=== PATIENT | male | born 1955 | race Caucasian/White ===

== ENCOUNTER 2018-02-03 22:02 | Emergency (ER) | payer OTHER ==
[2018-02-03 22:12] VITALS: RESP 18
--- NOTE | 2018-02-03 23:02 | XR ---
EXAMINATION TYPE: XR chest 2V DATE OF EXAM: 02/03/2018 COMPARISON: 01/19/2016 HISTORY: Chest pain TECHNIQUE: Frontal and lateral views of the chest are obtained. FINDINGS: Heart and mediastinum are normal. Thoracic aorta is tortuous. Lungs are clear of infiltrat e. There is no heart failure. There are chest leads. Bony thorax is intact. There is no sign of pleur al effusion. IMPRESSION: No active cardiopulmonary disease. No change.
[2018-02-03] MEDS ORDERED: NITROGLYCERIN OINT 1 INCH/GM PACKET TOPICAL STA (23:11)
[2018-02-03] MEDS ORDERED: ASPIRIN 81 MG PO STA (23:11)
--- NOTE | 2018-02-03 23:16 | ED ---
General Adult HPI - General Chief complaint: Chest Pain Stated complaint: chest pain Time Seen by Provider: 02/03/18 22:21 Source: patient, RN notes reviewed Mode of arrival: wheelchair Limitations: no limitations - History of Present Illness Initial comments: Patient is a pleasant 62-year-old male presenting to the emergency Department with complaints of chest discomfort. Onset of symptoms was several days ago. Symptoms were somewhat worse today. Patient is having several episodes daily of tightness on the right sternal border. Episodes generally only last a few seconds then resolved. Discomfort is 2 or 3/10. Patient has no discomfort at this time. No associated dyspnea, nausea, or diaphoresis. Patient states symptoms are usually noticed when he is at rest. Patient does exercise and does play tennis without symptoms occurring. - Related Data Home Medications Medication Instructions Recorded Confirmed Valsartan [Diovan] 20 mg PO DAILY 05/29/15 02/03/18 Ibuprofen [Motrin Ib] 400 mg PO BID PRN 02/03/18 02/03/18 Rosuvastatin [Crestor] 10 mg PO DAILY 02/03/18 02/03/18 Allergies Allergy/AdvReac Type Severity Reaction Status Date / Time No Known Allergies Allergy Verified 02/03/18 22:30 Review of Systems ROS Statement: Those systems with pertinent positive or pertinent negative responses have been documented in the HPI. ROS Other: All systems not noted in ROS Statement are negative. Constitutional: Denies: fever Eyes: Denies: eye pain ENT: Denies: ear pain Respiratory: Denies: cough, dyspnea Cardiovascular: Reports: chest pain Endocrine: Denies: fatigue Gastrointestinal: Denies: abdominal pain Genitourinary: Denies: dysuria Musculoskeletal: Denies: back pain Skin: Reports: rash (Patient has a rash on his back they do question was from bug bites a proximal he 5 days ago. They do feel it is improving.) Neurological: Denies: headache Past Medical History Past Medical History: Hypertension Additional Past Medical History / Comment(s): kidney stones History of Any Multi-Drug Resistant Organisms: None Reported Past Surgical History: Hernia Repair Past Psychological History: No Psychological Hx Reported Smoking Status: Never smoker Past Alcohol Use History: None Reported Past Drug Use History: None Reported General Exam Limitations: no limitations General appearance: alert, in no apparent distress Head exam: Present: atraumatic Eye exam: Present: normal appearance Neck exam: Present: normal inspection Respiratory exam: Present: normal lung sounds bilaterally. Absent: chest wall tenderness Cardiovascular Exam: Present: regular rate, normal rhythm Expanded Peripheral pulses: 2+: Radial (R), Radial (L), Posterior Tibialis (R), Posterior Tibialis (L) GI/Abdominal exam: Present: soft. Absent: tenderness Extremities exam: Present: normal inspection. Absent: pedal edema, calf tenderness Back exam: Present: normal inspection Neurological exam: Present: alert Psychiatric exam: Present: normal affect, normal mood Skin exam: Present: rash (Right thoracic back with several raised confluent lesions with minimal discomfort. No vesicles.) Course Vital Signs 02/03/18 02/03/18 02/03/18 22:09 22:33 23:30 Temperature 97.7 F Pulse Rate 64 63 56 L Respiratory 18 18 18 Rate Blood Pressure 124/80 130/87 120/79 O2 Sat by Pulse 98 97 97 Oximetry EKG Findings - EKG Comments: EKG Findings:: Sinus bradycardia 58. First-degree AV block MA of 246. QRS 90. QT 416. QTC 408. Left axis. Normal QRS. No acute ST change. Medical Decision Making - Medical Decision Making Case discussed in detail with Dr. Vickers who is familiar with this patient. He does feel comfortable with discharge the patient and does recommend follow-up first set up for stress testing. Patient is updated on results and plan. Patient advised to return for worsening symptoms or more persistent symptoms. Patient states he does not really take Motrin and is warned of risk of Motrin. - Lab Data Result diagrams: 02/03/18 22:32 02/03/18 22:32 Lab Results 02/03/18 02/03/18 02/03/18 Range/Units 22:32 22:32 22:32 WBC 4.7 (3.8-10.6) k/uL RBC 4.73 (4.30-5.90) m/uL Hgb 13.4 (13.0-17.5) gm/dL Hct 39.4 (39.0-53.0) % MCV 83.3 (80.0-100.0) fL MCH 28.4 (25.0-35.0) pg MCHC 34.1 (31.0-37.0) g/dL RDW 13.0 (11.5-15.5) % Plt Count 243 (150-450) k/uL Neutrophils % 43 % Lymphocytes % 43 % Monocytes % 8 % Eosinophils % 4 % Basophils % 1 % Neutrophils # 2.0 (1.3-7.7) k/uL Lymphocytes # 2.0 (1.0-4.8) k/uL Monocytes # 0.4 (0-1.0) k/uL Eosinophils # 0.2 (0-0.7) k/uL Basophils # 0.0 (0-0.2) k/uL PT (9.0-12.0) sec INR (<1.2) APTT (22.0-30.0) sec D-Dimer (<0.60) mg/L FEU Sodium 143 (137-145) mmol/L Potassium 3.9 (3.5-5.1) mmol/L Chloride 104 (98-107) mmol/L Carbon Dioxide 24 (22-30) mmol/L Anion Gap 15 mmol/L BUN 24 H (9-20) mg/dL Creatinine 1.10 (0.66-1.25) mg/dL Est GFR (CKD-EPI)AfAm 83 (>60 ml/min/1.73 sqM) Est GFR (CKD-EPI)NonAf 72 (>60 ml/min/1.73 sqM) Glucose 132 H (74-99) mg/dL Calcium 9.3 (8.4-10.2) mg/dL Magnesium 2.2 (1.6-2.3) mg/dL Total Bilirubin 0.4 (0.2-1.3) mg/dL AST 32 (17-59) U/L ALT 50 (21-72) U/L Alkaline Phosphatase 48 (38-126) U/L Total Creatine Kinase 115 (55-170) U/L CK-MB (CK-2) 1.5 (0.0-2.4) ng/mL CK-MB (CK-2) Rel Index 1.3 Troponin I <0.012 (0.000-0.034) ng/mL Total Protein 6.5 (6.3-8.2) g/dL Albumin 4.1 (3.5-5.0) g/dL 02/03/18 Range/Units 22:32 WBC (3.8-10.6) k/uL RBC (4.30-5.90) m/uL Hgb (13.0-17.5) gm/dL Hct (39.0-53.0) % MCV (80.0-100.0) fL MCH (25.0-35.0) pg MCHC (31.0-37.0) g/dL RDW (11.5-15.5) % Plt Count (150-450) k/uL Neutrophils % % Lymphocytes % % Monocytes % % Eosinophils % % Basophils % % Neutrophils # (1.3-7.7) k/uL Lymphocytes # (1.0-4.8) k/uL Monocytes # (0-1.0) k/uL Eosinophils # (0-0.7) k/uL Basophils # (0-0.2) k/uL PT 10.3 (9.0-12.0) sec INR 1.0 (<1.2) APTT 22.8 (22.0-30.0) sec D-Dimer 0.33 (<0.60) mg/L FEU Sodium (137-145) mmol/L Potassium (3.5-5.1) mmol/L Chloride (98-107) mmol/L Carbon Dioxide (22-30) mmol/L Anion Gap mmol/L BUN (9-20) mg/dL Creatinine (0.66-1.25) mg/dL Est GFR (CKD-EPI)AfAm (>60 ml/min/1.73 sqM) Est GFR (CKD-EPI)NonAf (>60 ml/min/1.73 sqM) Glucose (74-99) mg/dL Calcium (8.4-10.2) mg/dL Magnesium (1.6-2.3) mg/dL Total Bilirubin (0.2-1.3) mg/dL AST (17-59) U/L ALT (21-72) U/L Alkaline Phosphatase (38-126) U/L Total Creatine Kinase (55-170) U/L CK-MB (CK-2) (0.0-2.4) ng/mL CK-MB (CK-2) Rel Index Troponin I (0.000-0.034) ng/mL Total Protein (6.3-8.2) g/dL Albumin (3.5-5.0) g/dL - Radiology Data Radiology results: image reviewed (Chest x-ray shows no acute process) Disposition Clinical Impression: Chest pain Disposition: HOME SELF-CARE Condition: Stable Instructions: Chest Pain (ED) Additional Instructions: Please follow-up with Dr. Vickers in the morning. Return for increase discomfort , longer duration of symptoms, difficulty breathing, nausea or dizziness or sweating, worsening symptoms or other concerns. Is patient prescribed a controlled substance at d/c from ED?: No Referrals: Wagner Vickers MD [Primary Care Provider] - 1-2 days Time of Disposition: 00:20
[2018-02-03 23:21] LABS: Basophils % (A) 1 %; Eosinophils # (A) 0.2 k/uL (0-0.7); Eosinophils % (A) 4 %; HCT 39.4 % (39.0-53.0); HGB 13.4 gm/dL (13.0-17.5); Lymphocytes % (A) 43 %; MCH 28.4 pg (25.0-35.0); MCHC 34.1 g/dL (31.0-37.0); MCV 83.3 fL (80.0-100.0); Mean Platelet Volume 7.3; Monocytes # (A) 0.4 k/uL (0-1.0); Monocytes % (A) 8 %; Neutrophils % (A) 43 %; Platelet Count 243 k/uL (150-450); RBC 4.73 m/uL (4.30-5.90); WBC 4.7 k/uL (3.8-10.6)
[2018-02-03 23:30] LABS: Albumin 4.1 g/dL (3.5-5.0); Calcium 9.3 mg/dL (8.4-10.2); Magnesium 2.2 mg/dL (1.6-2.3); Potassium 3.9 mmol/L (3.5-5.1); Total Bilirubin 0.4 mg/dL (0.2-1.3); Total Protein 6.5 g/dL (6.3-8.2)
[2018-02-03 23:34] LABS: D-Dimer 0.33 mg/L FEU (<0.60); Partial Thromboplastin Time 22.8 sec (22.0-30.0); Prothrombin Time 10.3 sec (9.0-12.0)
[2018-02-03 23:43] LABS: Creatine Kinase 115 U/L (55-170)
[2018-02-03 23:55] LABS: Creatine Kinase MB 1.5 ng/mL (0.0-2.4); Troponin I <0.012 ng/mL (0.000-0.034)
[2018-02-04 00:50] VITALS: BP 116/77; PULSE 52; TEMP 98
== END 2018-02-04 00:50 | disposition home or self-care (01) ==
LOC: EC 22:02
DX: R07.89 Other chest pain (principal); I10 Essential (primary) hypertension; Z79.899 Other long term (current) drug therapy
CPT/HCPCS: 36415; 71046; 80053; 82550; 82553; 83735; 84484; 85025; 85379; 85610; 85730; 93005; 99285

== ENCOUNTER → 2018-09-24 | Outpatient (CLI) | payer OTHER ==
--- NOTE | 2018-09-24 15:47 | MR ---
EXAMINATION TYPE: MR knee RT wo con DATE OF EXAM: 09/24/2018 COMPARISON: None HISTORY: Right knee pain TECHNIQUE: Multiplanar, multisequence imaging of the right knee is performed without IV contrast. FINDINGS: MEDIAL MENISCUS: There is increased signal within the substance of the posterior meniscus compatible with horizontal tear and/or internal derangement. Milder increased signal within the anterior horn me dial meniscus is present compatible some internal derangement or degenerative change. LATERAL MENISCUS: Anterior and posterior horns are intact without tear. CRUCIATE LIGAMENTS: The anterior and posterior cruciate ligaments are intact and unremarkable. COLLATERAL LIGAMENTS: The medial collateral ligament and lateral collateral ligament complex are inta ct and unremarkable. EXTENSOR MECHANISM: Visualized quadriceps and patellar tendons are intact. EFFUSION: No significant suprapatellar joint effusion. POPLITEAL CYST: Some minimal fluid may be posterior medial to the knee joint space measures approxim ately 1.3 cm in size. TRICOMPARTMENT SPACES: There is mild narrowing of the medial lateral compartment joint spaces. Medial femoral condylar and medial tibial plateau spurring is noted. CARTILAGE: There is diffuse thinning of the articular cartilage greater in the medial compartment com patible some osteoarthritic degenerative change. BONE MARROW SIGNAL: No focal abnormal marrow signal is appreciated. OTHER: No additional significant abnormality is appreciated. IMPRESSION: Internal derangement and/or horizontal tear with degenerative change in the posterior horn medial men iscus. Milder internal derangement or degenerative change with possible horizontal tear of the anteri or medial meniscus may be present. 2. Mild osteoarthritic degenerative change medial compartment right knee. 3. Tiny posterior medial synovial cyst or popliteal cyst may be present.
== END ==
LOC: RADMRIMAIN 07:09
PROVIDERS: ATTEND Orthopaedic Surgery
DX: M23.221 Derangement of posterior horn of medial meniscus due to old tear or injury, right knee (principal); M17.11 Unilateral primary osteoarthritis, right knee

== ENCOUNTER 2020-06-24 08:57 | Emergency (ER) | payer OTHER ==
[2020-06-24 09:07] VITALS: BP 132/95; RESP 18
[2020-06-24 09:14] VITALS: TEMP 97.4
[2020-06-24] MEDS ORDERED: MECLIZINE 25 MG TAB PO STA (09:19)
[2020-06-24] MEDS ORDERED: diazePAM 5 MG TAB PO STA (09:20)
--- NOTE | 2020-06-24 09:23 | ED ---
General Adult HPI - General Chief complaint: Dizziness Stated complaint: dizzy, disoriented Time Seen by Provider: 06/24/20 09:00 Source: patient, RN notes reviewed, old records reviewed Mode of arrival: ambulatory Limitations: no limitations - History of Present Illness Initial comments: This is a 64-year-old male who presents emergency department stating that he got up out of bed today and the room was spinning. Patient states was difficult to walk bathroom but he did get to the bathroom and was very nauseated. Patient states before coming in he did vomit one time. Patient states any movement at all make the symptoms worse. Patient denies any headache patient denies any numbness or weakness. Patient denies any chest pain palpitations difficulty breathing shortness of breath per patient denies any recent fever chills or cough. Patient denies any congestion. Patient denies any abdominal pain. - Related Data Home Medications Medication Instructions Recorded Confirmed Losartan/Hydrochlorothiazide 1 tab PO DAILY 06/24/20 06/24/20 [Losartan-Hctz 100-12.5 mg Tab] Rosuvastatin Calcium 20 mg PO DAILY 06/24/20 06/24/20 Previous Rx's Medication Instructions Recorded Meclizine [Antivert] 25 mg PO TID #20 tab 06/24/20 Allergies Allergy/AdvReac Type Severity Reaction Status Date / Time No Known Allergies Allergy Verified 06/24/20 09:47 Review of Systems ROS Statement: Those systems with pertinent positive or pertinent negative responses have been documented in the HPI. ROS Other: All systems not noted in ROS Statement are negative. Past Medical History Past Medical History: Hyperlipidemia, Hypertension Additional Past Medical History / Comment(s): kidney stones History of Any Multi-Drug Resistant Organisms: None Reported Past Surgical History: Hernia Repair Past Psychological History: No Psychological Hx Reported Smoking Status: Never smoker Past Alcohol Use History: None Reported Past Drug Use History: None Reported General Exam - General Exam Comments Initial Comments: GENERAL: Patient is well-developed and well-nourished. Patient is nontoxic and well-hy drated and is in mild distress. ENT: Neck is soft and supple. No significant lymphadenopathy is noted. Oropharynx is clear. Moist mucous membranes. Neck has full range of motion without eliciting any pain. EYES: The sclera were anicteric and conjunctiva were pink and moist. Extraocular movements were intact and pupils were equal round and reactive to light. Eyelids were unremarkable. PULMONARY: Unlabored respirations. Good breath sounds bilaterally. No audible rales rhonchi or wheezing was noted. CARDIOVASCULAR: There is a regular rate and rhythm without any murmurs gallops or rubs. ABDOMEN: Soft and nontender with normal bowel sounds. SKIN: Skin is clear with no lesions or rashes and otherwise unremarkable. NEUROLOGIC: Patient is alert and oriented x3. Cranial nerves II through XII are grossly intact. Motor and sensory are also intact. Normal speech, volume and content. Symmetrical smile. Cerebellar exam grossly intact. MUSCULOSKELETAL: Normal extremities with adequate strength and full range of motion. No lower extremity swelling or edema. No calf tenderness. LYMPHATICS: No significant lymphadenopathy is noted PSYCHIATRIC: Normal psychiatric evaluation. Limitations: no limitations Course Vital Signs 06/24/20 06/24/20 08:58 09:14 Temperature 97.4 F L 97.4 F L Pulse Rate 61 Respiratory 18 Rate Blood Pressure 132/95 O2 Sat by Pulse 100 Oximetry Medical Decision Making - Medical Decision Making EKG shows sinus bradycardia at 54 bpm IA interval is 276 QRS is 80 QT interval 444 QTC is 421. Patient's EKG shows no ST segment elevation or depression. Chest x-ray and CT of the brain both show no acute abnormality. Antivert and Valium were given to the patient he was feeling considerably better on discharge. - Lab Data Result diagrams: 06/24/20 09:24 06/24/20 09:24 Lab Results 06/24/20 06/24/20 06/24/20 Range/Units 09:24 09:24 09:24 WBC 5.8 (3.8-10.6) k/uL RBC 5.18 (4.30-5.90) m/uL Hgb 14.6 (13.0-17.5) gm/dL Hct 43.8 (39.0-53.0) % MCV 84.6 (80.0-100.0) fL MCH 28.3 (25.0-35.0) pg MCHC 33.4 (31.0-37.0) g/dL RDW 13.2 (11.5-15.5) % Plt Count 252 (150-450) k/uL Neutrophils % 60 % Lymphocytes % 29 % Monocytes % 6 % Eosinophils % 3 % Basophils % 1 % Neutrophils # 3.5 (1.3-7.7) k/uL Lymphocytes # 1.7 (1.0-4.8) k/uL Monocytes # 0.4 (0-1.0) k/uL Eosinophils # 0.1 (0-0.7) k/uL Basophils # 0.0 (0-0.2) k/uL PT 10.2 (9.0-12.0) sec INR 1.0 (<1.2) APTT 21.4 L (22.0-30.0) sec Sodium 138 (137-145) mmol/L Potassium 3.9 (3.5-5.1) mmol/L Chloride 106 (98-107) mmol/L Carbon Dioxide 23 (22-30) mmol/L Anion Gap 9 mmol/L BUN 25 H (9-20) mg/dL Creatinine 0.90 (0.66-1.25) mg/dL Est GFR (CKD-EPI)AfAm >90 (>60 ml/min/1.73 sqM) Est GFR (CKD-EPI)NonAf 90 (>60 ml/min/1.73 sqM) Glucose 129 H (74-99) mg/dL Calcium 9.2 (8.4-10.2) mg/dL Magnesium 2.1 (1.6-2.3) mg/dL Total Bilirubin 0.6 (0.2-1.3) mg/dL AST 41 (17-59) U/L ALT 50 H (4-49) U/L Alkaline Phosphatase 52 (38-126) U/L Troponin I (0.000-0.034) ng/mL Total Protein 7.2 (6.3-8.2) g/dL Albumin 4.4 (3.5-5.0) g/dL 06/24/20 Range/Units 09:24 WBC (3.8-10.6) k/uL RBC (4.30-5.90) m/uL Hgb (13.0-17.5) gm/dL Hct (39.0-53.0) % MCV (80.0-100.0) fL MCH (25.0-35.0) pg MCHC (31.0-37.0) g/dL RDW (11.5-15.5) % Plt Count (150-450) k/uL Neutrophils % % Lymphocytes % % Monocytes % % Eosinophils % % Basophils % % Neutrophils # (1.3-7.7) k/uL Lymphocytes # (1.0-4.8) k/uL Monocytes # (0-1.0) k/uL Eosinophils # (0-0.7) k/uL Basophils # (0-0.2) k/uL PT (9.0-12.0) sec INR (<1.2) APTT (22.0-30.0) sec Sodium (137-145) mmol/L Potassium (3.5-5.1) mmol/L Chloride (98-107) mmol/L Carbon Dioxide (22-30) mmol/L Anion Gap mmol/L BUN (9-20) mg/dL Creatinine (0.66-1.25) mg/dL Est GFR (CKD-EPI)AfAm (>60 ml/min/1.73 sqM) Est GFR (CKD-EPI)NonAf (>60 ml/min/1.73 sqM) Glucose (74-99) mg/dL Calcium (8.4-10.2) mg/dL Magnesium (1.6-2.3) mg/dL Total Bilirubin (0.2-1.3) mg/dL AST (17-59) U/L ALT (4-49) U/L Alkaline Phosphatase (38-126) U/L Troponin I <0.012 (0.000-0.034) ng/mL Total Protein (6.3-8.2) g/dL Albumin (3.5-5.0) g/dL Disposition Clinical Impression: Vertigo Disposition: HOME SELF-CARE Condition: Good Instructions (If sedation given, give patient instructions): Vertigo (ED) Prescriptions: Meclizine [Antivert] 25 mg PO TID #20 tab Is patient prescribed a controlled substance at d/c from ED?: No Referrals: Raiza Sorto MD [Primary Care Provider] - 1-2 days Time of Disposition: 10:20
[2020-06-24 09:33] LABS: Basophils % (A) 1 %; Eosinophils # (A) 0.1 k/uL (0-0.7); Eosinophils % (A) 3 %; HCT 43.8 % (39.0-53.0); HGB 14.6 gm/dL (13.0-17.5); Lymphocytes # (A) 1.7 k/uL (1.0-4.8); Lymphocytes % (A) 29 %; MCH 28.3 pg (25.0-35.0); MCHC 33.4 g/dL (31.0-37.0); MCV 84.6 fL (80.0-100.0); Mean Platelet Volume 6.8; Monocytes # (A) 0.4 k/uL (0-1.0); Monocytes % (A) 6 %; Neutrophils # (A) 3.5 k/uL (1.3-7.7); Neutrophils % (A) 60 %; Platelet Count 252 k/uL (150-450); RBC 5.18 m/uL (4.30-5.90); RDW 13.2 % (11.5-15.5); WBC 5.8 k/uL (3.8-10.6)
[2020-06-24 09:51] LABS: ALT 50 U/L (4-49); AST 41 U/L (17-59); African American GFR (CKD) >90 (>60 ml/min/1.73 sqM); Albumin 4.4 g/dL (3.5-5.0); Alkaline Phosphatase 52 U/L (38-126); Anion Gap 9 mmol/L; Blood Urea Nitrogen 25 mg/dL (9-20); Calcium 9.2 mg/dL (8.4-10.2); Carbon Dioxide 23 mmol/L (22-30); Chloride 106 mmol/L (98-107); Glucose 129 mg/dL (74-99); Magnesium 2.1 mg/dL (1.6-2.3); Non-African American GFR(CKD) 90 (>60 ml/min/1.73 sqM); Potassium 3.9 mmol/L (3.5-5.1); Sodium 138 mmol/L (137-145); Total Bilirubin 0.6 mg/dL (0.2-1.3); Total Protein 7.2 g/dL (6.3-8.2)
--- NOTE | 2020-06-24 09:59 | CT ---
EXAMINATION TYPE: CT brain wo con DATE OF EXAM: 06/24/2020 COMPARISON: HISTORY: dizziness, nausea CT DLP: 1076.4 mGycm Automated exposure control for dose reduction was used. Helical acquisition through the brain. FINDINGS: Cortical atrophy is noted. Periventricular white matter shows patchy low attenuation. There is no hem orrhage or hydrocephalus. Calvarium is intact. Orbits are intact. IMPRESSION: AGE-RELATED CHANGES OF ATROPHY AND PROBABLE CHRONIC SMALL VESSEL ISCHEMIA.
--- NOTE | 2020-06-24 10:01 | XR ---
EXAMINATION TYPE: XR chest 2V DATE OF EXAM: 06/24/2020 COMPARISON: Prior chest x-ray 02/03/2018, CT and chest x-ray 01/19/2016 HISTORY: Chest pain TECHNIQUE: Frontal and lateral views of the chest are obtained. FINDINGS: There is stable increased density superimposed over the lower thoracic spine corresponding to the tortuous aorta. There is no airspace disease, pneumothorax, or pleural effusion. Cardiac medi astinal silhouette, pulmonary vascularity and mekhi within normal limits. There are overlying cardiac leads. IMPRESSION: No acute cardiopulmonary process.
[2020-06-24 10:04] LABS: Prothrombin Time 10.2 sec (9.0-12.0)
[2020-06-24 10:17] LABS: Partial Thromboplastin Time 21.4 sec (22.0-30.0)
[2020-06-24] MEDS ORDERED: SODIUM CHLORIDE 0.9% 500 ML 500 ML IV ONE (10:29)
[2020-06-24] MEDS ORDERED: ONDANSETRON 4 MG/2 ML VIAL IVP STA (10:29)
[2020-06-24 10:57] VITALS: PULSE 54
== END 2020-06-24 10:56 | disposition home or self-care (01) ==
LOC: EC 08:57
DX: R42 Dizziness and giddiness (principal); R00.1 Bradycardia, unspecified; I10 Essential (primary) hypertension; E78.5 Hyperlipidemia, unspecified; Z79.899 Other long term (current) drug therapy; Z87.442 Personal history of urinary calculi
CPT/HCPCS: 36415; 93005; 80053; 83735; 84484; 85025; 85610; 85730; 71046; 70450; 99285; 96374; J2405

== ENCOUNTER → 2021-10-05 | Outpatient (CLI) | payer OTHER ==
--- NOTE | 2021-10-06 07:41 | US ---
EXAMINATION TYPE: US carotid duplex BILAT DATE OF EXAM: 10/05/2021 COMPARISON: NONE CLINICAL HISTORY: R42 vertigo. EXAM MEASUREMENTS: RIGHT: Peak Systolic Velocity (PSV) cm/sec ----- Right CCA: 122.1 ----- Right ICA: 73.7 ----- Right ECA: 114.5 ICA/CCA ratio: 0.6 RIGHT: End Diastole cm/sec ----- Right CCA: 36.5 ----- Right ICA: 31.4 ----- Right ECA: 21.0 LEFT: Peak Systolic Velocity (PSV) cm/sec ----- Left CCA: 109.3 ----- Left ICA: 68.0 ----- Left ECA: 91.9 ICA/CCA ratio: 0.6 LEFT: End Diastole cm/sec ----- Left CCA: 30.0 ----- Left ICA: 20.8 ----- Left ECA: 16.4 VERTEBRALS (direction of flow): Right Vertebral: Antegrade Left Vertebral: Antegrade Rhythm: Normal Mild to moderate bulb plaque with no significant velocity increases. IMPRESSION: Mild to moderate atherosclerotic plaque with no significant hemodynamic stenosis. Criteria for Assigning % of Stenosis / Diameter reduction (Estimation based on the indirect measurements of the internal carotid artery velocities (ICA PSV). 1. Normal (no stenosis)=ICA PSV < 125 cm/s: ratio < 2.0: ICA EDV<40 cm/s. 2. Less than 50% stenosis=ICA PSV < 125 cm/s: ratio < 2.0: ICA EDV<40 cm/s. 3. 50 to 69% stenosis=ICA PSV of 125 to 230 cm/s: ration 2.0 ? 4.0: ICA EDV 40-100 cm/s. 4. Greater than 70% stenosis to near occlusion= ICA PSV > 230 cm/s: ratio > 4.0: ICA EDV > 100 cm/s. 5. Near occlusion= ICA PSV velocities may be low or undetectable: variable ratio and ICA EDV. 6. Total occlusion=unable to detect flow.
== END | disposition home or self-care (01) ==
LOC: RADUSWWP 16:45
PROVIDERS: ATTEND Internal Medicine
DX: I65.29 Occlusion and stenosis of unspecified carotid artery (principal)
CPT/HCPCS: 93880

== ENCOUNTER 2022-12-11 16:21 | Emergency (ER) | payer OTHER ==
--- NOTE | 2022-12-11 16:50 | ED ---
General Adult HPI - General Stated complaint: poss DVT/post knee surgery Time Seen by Provider: 12/11/22 16:48 Source: RN notes reviewed - History of Present Illness Initial comments: Patient is a 67-year-old male who presents to the emergency department for possible DVT. Patient had right knee surgery with Dr. Membreno on Nov 04. The surgery went well. Patient has been in physical therapy. This week they noticed increased swelling of his right calf with redness. Patient denies any new or changed pain since his surgery. He does not use blood thinners. He denies history of DVT and PE. Denies tobacco use, known cancers, family clotting disorders, recent long car ride or airplane travel. No chest pain or shortness of breath. - Related Data Home Medications Medication Instructions Recorded Confirmed Losartan/Hydrochlorothiazide 1 tab PO QAM 06/24/20 11/04/22 [Losartan-Hctz 100-12.5 mg Tab] Rosuvastatin Calcium 20 mg PO DAILY 06/24/20 11/04/22 Acetaminophen [Tylenol] 325 mg PO Q4H PRN 10/29/22 11/04/22 Fexofenadine/Pseudoephedrine 1 tab PO DAILY 10/29/22 11/04/22 [Tri-D 24 Hour Tablet] Ibuprofen [Motrin] 400 mg PO Q6HR PRN 10/29/22 11/04/22 Previous Rx's Medication Instructions Recorded Aspirin [Adult Low Dose Aspirin EC] 81 mg PO BID #60 tab 11/04/22 Docusate [Colace] 100 mg PO DAILY #30 capsule 11/04/22 HYDROcodone/APAP 7.5-325MG [Mongo 1 - 2 each PO Q6HR PRN #36 tab 11/04/22 7.5] Pregabalin [Lyrica] 75 mg PO BID 14 Days #21 cap 11/05/22 Allergies Allergy/AdvReac Type Severity Reaction Status Date / Time No Known Allergies Allergy Verified 11/04/22 08:57 Review of Systems ROS Statement: Those systems with pertinent positive or pertinent negative responses have been documented in the HPI. ROS Other: All systems not noted in ROS Statement are negative. Past Medical History Past Medical History: Hyperlipidemia, Hypertension Additional Past Medical History / Comment(s): kidney stones History of Any Multi-Drug Resistant Organisms: None Reported Past Surgical History: Hernia Repair Additional Past Surgical History / Comment(s): lithotripsyleft inguinal hernia Past Anesthesia/Blood Transfusion Reactions: No Reported Reaction, Motion Sickness Additional Past Anesthesia/Blood Transfusion Reaction / Comment(s): vertigo. no hx blood transfusion Past Psychological History: No Psychological Hx Reported Smoking Status: Never smoker Past Alcohol Use History: None Reported Past Drug Use History: None Reported - Past Family History Sister(s) Family Medical History: Cancer Additional Family Medical History / Comment(s): skin CA General Exam - General Exam Comments Initial Comments: Visual Physical Exam Vital signs reviewed General: Well-appearing, nontoxic, no acute distress. Head: Normocephalic, atraumatic Eyes: PERRLA, EOMI ENT: Airway patent Chest: Nonlabored breathing Skin: No visual rash, normal skin tone Neuro: Alert and oriented 3 Musculoskeletal: No gross abnormalities General appearance: alert, in no apparent distress Head exam: Present: atraumatic, normocephalic, normal inspection Respiratory exam: Present: normal lung sounds bilaterally. Absent: respiratory distress, wheezes, rales, rhonchi, stridor Cardiovascular Exam: Present: regular rate, normal rhythm, normal heart sounds. Absent: systolic murmur, diastolic murmur, rubs, gallop, clicks Extremities exam: Present: other (Mild swelling of right lower leg without any evidence of erythema, tenderness, warmth) Neurological exam: Present: alert, oriented X3, CN II-XII intact Psychiatric exam: Present: normal affect, normal mood Skin exam: Present: warm, dry, intact, normal color. Absent: rash Medical Decision Making - Medical Decision Making Was pt. sent in by a medical professional or institution (, PA, RETAIL CASHIER ASSOCIATE, urgent care, hospital, or senior care...) When possible be specific @ -No Did you speak to anyone other than the patient for history (EMS, parent, family, police, friend...)? What history was obtained from this source @ -No Did you review nursing and triage notes (agree or disagree)? Why? @ -I reviewed and agree with nursing and triage notes Were old charts reviewed (outside hosp., previous admission, EMS record, old EKG, old radiological studies, urgent care reports/EKG's, senior care records)? Report findings @ -No old charts were reviewed Differential Diagnosis (chest pain, altered mental status, abdominal pain women, abdominal pain men, vaginal bleeding, weakness, fever, dyspnea, syncope, headache, dizziness, GI bleed, back pain, seizure, CVA, palpatations, mental health)? @ -DVT, cellulitis, dependent edema, post op edema EKG interpreted by me (3pts min.). @ -As above X-rays interpreted by me (1pt min.). @ -None done CT interpreted by me (1pt min.). @ -None done U/S interpreted by me (1pt. min.). @ -No. Ultrasound report is negative for acute DVT. There is streaky subcutaneous edema What testing was considered but not performed or refused? (CT, X-rays, U/S, labs)? Why? @ -None What meds were considered but not given or refused? Why? @ -None Did you discuss the management of the patient with other professionals (fei hilliard i.e. , PA, RETAIL C[employer]IER ASSOCIATE, lab, RT, psych nurse, child welfare social worker, mining analyst, teacher, aeronautical engineering officer, showcase trimmer)? Give summary @ -No Was smoking cessation discussed for >3mins.? @ -No Was critical care preformed (if so, how long)? @ -No Were there social determinants of health that impacted care today? How? (Homelessness, low income, unemployed, alcoholism, drug addiction, transportation, low edu. Level, literacy, decrease access to med. care, snf, rehab)? @ -No Was there de-escalation of care discussed even if they declined (Discuss DNR or withdrawal of care, Hospice)? DNR status @ -No What co-morbidities impacted this encounter? (DM, HTN, Smoking, COPD, CAD, Cancer, CVA, ARF, Chemo, Hep., AIDS, mental health diagnosis, sleep apnea, morbid obesity)? @ -None Was patient admitted / discharged? Hospital course, mention meds given and route, prescriptions, significant lab abnormalities, going to OR and other pertinent info. @ -Patient presenting for possible DVT. Ultrasound negative for acute DVT. Patient encouraged to elevate the extremity. I did offer to wrap extremity in Simone bandage patient declined however he did take one home to wrap himself later. Undiagnosed new problem with uncertain prognosis? @ -No Drug Therapy requiring intensive monitoring for toxicity (Heparin, Nitro, Insulin, Cardizem)? @ -No Were any procedures done? @ -No Diagnosis/symptom? @ -right lower extremity swelling Acute, or Chronic, or Acute on Chronic? @ -acute Uncomplicated (without systemic symptoms) or Complicated (systemic symptoms)? @ -uncomplicated Side effects of treatment? @ -No Exacerbation, Progression, or Severe Exacerbation? @ -No Poses a threat to life or bodily function? How? (Chest pain, USA, MD, pneumonia, PE, COPD, DKA, ARF, appy, cholecystitis, CVA, Diverticulitis, Homicidal, Suicidal, threat to staff... and all critical care pts) @ -No Dr. Robertson is my attending Disposition Clinical Impression: Right leg swelling Disposition: HOME SELF-CARE Condition: Good Instructions (If sedation given, give patient instructions): Leg Edema (ED) Additional Instructions: Be sure to elevate leg at home. Continue physical therapy. Follow-up with cost specialist in 1-2 days. Return to emergency department if you experience new, concerning, or worsening symptoms. Is patient prescribed a controlled substance at d/c from ED?: No Referrals: Nirav Lee MD [Primary Care Provider] - 1-2 days
--- NOTE | 2022-12-11 17:26 | US ---
EXAMINATION TYPE: US venous doppler duplex LE RT DATE OF EXAM: 12/11/2022 5:13 PM COMPARISON: NONE CLINICAL HISTORY: swelling. Edema SIDE PERFORMED: Right TECHNIQUE: The lower extremity deep venous system is examined utilizing real time linear array sonog yue with graded compression, doppler sonography and color-flow sonography. VESSELS IMAGED: Common Femoral Vein Deep Femoral Vein Greater Saphenous Vein * Femoral Vein Popliteal Vein Small Saphenous Vein * Proximal Calf Veins (* superficial vessels) Right Leg: Negative for DVT. Grayscale, color doppler, spectral doppler imaging performed of the apurva p veins of the lower extremities. There is normal flow, compressibility, vascular waveforms. Streaky subcutaneous edema is present. IMPRESSION: 1. No evidence for right lower extremity deep vein thrombosis. 2. Streaky subcutaneous edema.
[2022-12-11 17:54] VITALS: BP 119/77; PULSE 73; RESP 18; TEMP 98.5
== END 2022-12-11 17:58 | disposition home or self-care (01) ==
LOC: EC 16:21
DX: M79.89 Other specified soft tissue disorders (principal); I10 Essential (primary) hypertension; E78.5 Hyperlipidemia, unspecified; Z79.899 Other long term (current) drug therapy
CPT/HCPCS: 99283

== ENCOUNTER 2023-02-05 10:45 | Day surgery (SDC) | payer OTHER ==
[2023-01-31 15:14] VITALS: BMI 23.3
[~2023-02-05 10:45] MED LIST: LACTATED RINGERS 1,000 ML IV SCH; LIDOCAINE 1% (10MG/ML) FOR IV START INTRADERMA PRN
[2023-02-05] MEDS ORDERED: LACTATED RINGERS 1,000 ML IV ONE (10:59)
[2023-02-05 11:14] VITALS: TEMP 97.9
[2023-02-05] MEDS ORDERED: PROPOFOL 10 MG/ML 20 ML VIAL IV ONE (12:47)
--- NOTE | 2023-02-05 13:01 | P.PCN ---
Date of Procedure: 02/05/23 Procedure(s) Performed: BRIEF HISTORY: Patient is a 67-year-old pleasant male scheduled for an elective colonoscopy as a part of screening for colon cancer. PROCEDURE PERFORMED: Colonoscopy with biopsy. PREOPERATIVE DIAGNOSIS: Screening for colon cancer. IV sedation per Anesthesia. PROCEDURE: After informed consent was obtained, the patient, was brought into the endoscopy unit. IV sedation was administered by Anesthesia under continuous monitoring. Digital rectal examination was normal. Initially the Olympus CF-160 flexible video colonoscope was then inserted in the rectum, gradually advanced into the cecum without any difficulty. Careful examination was performed as the scope was gradually being withdrawn. Ileocecal valve and the appendiceal orifice were visualized and appeared normal. Prep was excellent. Mucosa of the cecum, ascending colon, transverse colon, descending colon, appeared normal. There was a 3 mm small polyp noted in the sigmoid colon that was removed by cold biopsy. Scattered sigmoid diverticulosis seen. sigmoid colon, and rectum appeared normal. Retroflexion was performed in the rectum and no lesions were seen. The patient tolerated the procedure well. IMPRESSION: 3 mm diminutive sigmoid polyp status post cold biopsy Scattered sigmoid diverticulosis. RECOMMENDATIONS: Findings of this examination were discussed with the patient as well as his family. He was advised to follow with the biopsy results and if the biopsy results adenoma he can have a repeat colonoscopy in 5 years
[2023-02-05 13:06] VITALS: RESP 16
[2023-02-05 13:25] VITALS: BP 140/84; PULSE 59
== END 2023-02-05 13:37 | disposition home or self-care (01) ==
LOC: ORWHC2ENDO 10:45
PROVIDERS: ATTEND Internal Medicine Gastroenterology
DX: Z12.11 Encounter for screening for malignant neoplasm of colon (principal); D12.5 Benign neoplasm of sigmoid colon; K57.30 Diverticulosis of large intestine without perforation or abscess without bleeding; I10 Essential (primary) hypertension; E78.5 Hyperlipidemia, unspecified; Z79.82 Long term (current) use of aspirin; Z79.899 Other long term (current) drug therapy; Z98.890 Other specified postprocedural states
CPT/HCPCS: 88305; 45380; J2704

== ENCOUNTER 2023-02-24 11:18 | Day surgery (SDC) | payer OTHER ==
--- NOTE | 2023-02-23 12:44 | HP ---
HISTORY AND PHYSICAL DATE OF SURGERY: 02/24/2023. HISTORY OF PRESENT ILLNESS: Louis Mitchell is a 67-year-old gentleman, who was seen with right knee adhesions, status post previous total knee arthroplasty. After having treatment options discussed, he elected to proceed with manipulation under anesthesia of right knee. Consent regarding the procedure was obtained. PAST MEDICAL HISTORY: Hypertension, hyperlipidemia. PAST SURGICAL HISTORY: Total knee arthroplasty. DAILY MEDICATIONS: 1. Crestor. 2. Diovan. 3. Naprosyn. ALLERGIES: None. SOCIAL HISTORY: Denies tobacco use. PHYSICAL EVALUATION OF THE RIGHT KNEE: Range of motion is -4/5 to 90 degrees. Incision is well healed. He has some quadriceps weakness. Distal neurovascular exam is intact. Ligaments stable. RADIOGRAPHS: Right knee radiographs reveal stable appearing total knee arthroplasty. IMPRESSION: 1. Right knee adhesive capsulitis. 2. Right total knee arthroplasty. 3. Hypertension. 4. Hyperlipidemia. PLAN: Manipulation under anesthesia, right knee. MMODL / IJN: [id number] /
[2023-02-24] MEDS ORDERED: LIDOCAINE 1% (10MG/ML) FOR IV START INTRADERMA PRN (11:30)
[2023-02-24] MEDS ORDERED: ONDANSETRON 4 MG/2 ML VIAL IVP ONE (11:30)
[2023-02-24] MEDS ORDERED: HYDROmorphone 0.5 MG/0.5 ML SYRINGE IVP PRN (11:30)
[2023-02-24] MEDS ORDERED: DEXAMETHASONE SOD PHOSPHATE 4 MG/ML 1 ML VIAL IV ONE (11:30)
[2023-02-24] MEDS ORDERED: MIDAZOLAM 2 MG/2 ML VIAL IV PRN (11:30)
[2023-02-24] MEDS ORDERED: LACTATED RINGERS 1,000 ML IV SCH (11:30)
[2023-02-24 11:42] VITALS: TEMP 97.5
[2023-02-24] MEDS ORDERED: PROPOFOL 10 MG/ML 20 ML VIAL IV ONE (11:57)
[2023-02-24] MEDS ORDERED: KETOROLAC 15 MG/ML 1 ML VIAL ONE (11:57)
--- NOTE | 2023-02-24 12:09 | P.OP ---
Date of Procedure: 02/24/23 Preoperative Diagnosis: Right knee adhesions Postoperative Diagnosis: Right knee adhesions Procedure(s) Performed: Manipulation under anesthesia right knee Anesthesia: MAC Surgeon: Bradley Membreno Estimated Blood Loss (ml): 0 Pathology: none sent Condition: stable Disposition: PACU Indications for Procedure: 67 no dominant was seen with persistent right knee adhesions/stiffness failing conservative treatment measures. After having options discussed, he elected to proceed with manipulation under anesthesia. Consent was obtained. Operative Findings: See description of procedure Description of Procedure: Patient was taken to monitored anesthesia area. He underwent IV sedation by the department of anesthesia. Once sufficient anesthesia was noted I performed a manipulation of the right knee achieving full extension and 140 of flexion with audible tearing of the adhesions. I took these range of motion and it was stable. The patient was now awakened having entire procedure well.
[2023-02-24 12:25] VITALS: RESP 16
[2023-02-24 13:42] VITALS: BP 142/86; PULSE 55
== END 2023-02-24 13:44 | disposition home or self-care (01) ==
LOC: OR 11:18
PROVIDERS: ATTEND Orthopaedic Surgery
DX: M24.661 Ankylosis, right knee (principal); I10 Essential (primary) hypertension; E78.5 Hyperlipidemia, unspecified; Z96.651 Presence of right artificial knee joint; Z79.899 Other long term (current) drug therapy; Z79.82 Long term (current) use of aspirin
CPT/HCPCS: 27570; J1100; J2405; J1885; J2704

== ENCOUNTER → 2023-07-17 | Outpatient (CLI) | payer OTHER ==
[2023-07-17 16:31] LABS: INR 1.03 sec (0.93-1.11); Prothrombin Time 11.1 sec (9.9-11.9)
[2023-07-17 16:38] LABS: BUN/Creat Ratio 19.36 Ratio (12.00-20.00); Blood Urea Nitrogen 21.3 mg/dL (9.0-27.0); C Reactive Protein <0.30 mg/dL (0.00-0.80); Calcium 9.5 mg/dL (8.7-10.3); Carbon Dioxide 25.6 mmol/L (21.6-31.8); Chloride 105 mmol/L (96-109); Glucose 98 mg/dL (70-110); Potassium 4.6 mmol/L (3.5-5.5); Sodium 142 mmol/L (135-145)
[2023-07-17 16:57] LABS: HGB 14.1 d/dL (13.0-17.0); MCH 28.4 pg (27.0-32.0); MCHC 32.8 d/dL (32.0-37.0); MCV 86.5 FL (80.0-97.0); Mean Platelet Volume 10.4 FL (9.5-12.2); NRBC Per 100 WBC 0 X 10*3/uL (0.00-0.01); Platelet Count 282 X 10*3/uL (140-440); RBC 4.97 X 10*6/uL (4.40-5.60); RDW 13.4 % (11.5-14.5); WBC 5.46 X 10*3/uL (4.50-10.00)
[2023-07-17 17:48] LABS: Erythrocyte Sedimentation Rate 8 mm/Hr (0-20)
== END | disposition home or self-care (01) ==
LOC: LABWHC1 09:20
PROVIDERS: ATTEND Orthopaedic Surgery Adult Reconstructive Orthopaedic Surgery
DX: Z01.89 Encounter for other specified special examinations (principal)
CPT/HCPCS: 36415; 80048; 83036; 85027; 85610; 85652; 86140; 87070

== ENCOUNTER 2023-09-25 15:46 | Emergency (ER) | payer OTHER, MEDICARE ==
[2023-09-25 16:52] VITALS: TEMP 98.1
--- NOTE | 2023-09-25 17:00 | ED ---
General Adult HPI - General Source: patient Mode of arrival: ambulatory Limitations: no limitations <Maribell Krishnamurthy - Last Filed: 09/25/23 16:59> <Deepak Sanchez - Last Filed: 09/25/23 22:36> - General Chief complaint: Abdominal Pain Stated complaint: Right groin pain Time Seen by Provider: 09/25/23 16:59 - History of Present Illness Initial comments: The patient comes in with complaints of) pain. History of hernias. (Maribell Krishnamurthy) 67-year-old male with a past medical history significant for HTN, hypercholesterolemia, kidney stones, and inguinal hernia resented to the ED with a chief complaint of groin pain. Patient states he has had pain in his right groin intermittently for the past few months. States he had a CAT scan performed a few months ago which found incidental finding of inguinal hernia. States over the last few days has been worsening in severity and has also become more frequent in nature. He does note recent right knee surgery and he has been doing physical therapy. She does note he made an appointment with Dr. Coronel, however states appointment is not for another few months. No other strenuous physical activity. Denies changes in urination. No changes in bowel movements. No nausea or vomiting. No Chest pain or shortness of breath. No other c omplaints. Patient is not a smoker or drinker. (Deepak Sanchez) - Related Data Home Medications Medication Instructions Recorded Confirmed Losartan/Hydrochlorothiazide 1 tab PO QAM 06/24/20 02/20/23 [Losartan-Hctz 100-12.5 mg Tab] Rosuvastatin Calcium 20 mg PO DAILY 06/24/20 02/20/23 Acetaminophen [Tylenol] 325 mg PO Q4H PRN 10/29/22 02/20/23 Fexofenadine/Pseudoephedrine 1 tab PO DAILY 10/29/22 02/20/23 [Tri-D 24 Hour Tablet] Aspirin [Adult Low Dose Aspirin EC] 81 mg PO DAILY PRN 01/31/23 02/20/23 Naproxen Sodium [Naproxen Sodium 500 mg PO BID 02/24/23 02/24/23 ER] Previous Rx's Medication Instructions Recorded traMADol HCl [Ultram] 50 mg PO Q6H PRN #21 tab 02/24/23 Allergies Allergy/AdvReac Type Severity Reaction Status Date / Time No Known Allergies Allergy Verified 09/25/23 16:36 Review of Systems ROS Other: All systems not noted in ROS Statement are negative. <Maribell Krishnamurthy - Last Filed: 09/25/23 16:59> ROS Other: All systems not noted in ROS Statement are negative. <Deepak Sanchez - Last Filed: 09/25/23 22:36> ROS Statement: Those systems with pertinent positive or pertinent negative responses have been documented in the HPI. Past Medical History Past Medical History: Hyperlipidemia, Hypertension Additional Past Medical History / Comment(s): kidney stones History of Any Multi-Drug Resistant Organisms: None Reported Past Surgical History: Hernia Repair, Orthopedic Surgery Additional Past Surgical History / Comment(s): lithotripsyleft inguinal hernia Past Anesthesia/Blood Transfusion Reactions: No Reported Reaction, Motion S ickness Additional Past Anesthesia/Blood Transfusion Reaction / Comment(s): vertigo. no hx blood transfusion Past Psychological History: No Psychological Hx Reported Smoking Status: Never smoker Past Alcohol Use History: None Reported Past Drug Use History: None Reported - Past Family History Sister(s) Family Medical History: Cancer Additional Family Medical History / Comment(s): skin CA <Maribell Krishnamurthy - Last Filed: 09/25/23 16:59> General Exam Limitations: no limitations <RastaMaribell abernathy - Last Filed: 09/25/23 16:59> General appearance: alert, in no apparent distress Eye exam: Present: normal appearance Neck exam: Present: normal inspection Respiratory exam: Present: normal lung sounds bilaterally Cardiovascular Exam: Present: regular rate, normal rhythm GI/Abdominal exam: Present: soft (Abdominal tenderness to palpation. No rebound guarding or rigidity. No CVA tenderness to percussion bilaterally. Patient does have an no hernia on the right side that spontaneously reduces.) Neurological exam: Present: alert, oriented X3 Skin exam: Present: warm, dry <Deepak Sanchez - Last Filed: 09/25/23 22:36> - General Exam Comments Initial Comments: Visual Physical Exam Vital signs reviewed General: Well-appearing, nontoxic, no acute distress. Head: Normocephalic, atraumatic Eyes: PERRLA, EOMI ENT: Airway patent Chest: Nonlabored breathing Skin: No visual rash, normal skin tone Neuro: Alert and oriented 3 Musculoskeletal: No gross abnormalities (Maribell Krishnamurthy) Course Vital Signs 09/25/23 16:33 Temperature 98.1 F Pulse Rate 66 Respiratory 17 Rate Blood Pressure 100/72 O2 Sat by Pulse 95 Oximetry Medical Decision Making <Maribell Krishnamurthy - Last Filed: 09/25/23 16:59> - Lab Data Result diagrams: 09/25/23 17:03 09/25/23 17:03 <Deepak Sanchez - Last Filed: 09/25/23 22:36> - Medical Decision Making Quick note portion completed by myself, Maribell Krishnamurthy PA-C. (Maribell Krishnamurthy) Was pt. sent in by a medical professional or institution (THONG Chapman, SENIOR INTERACTIVE PRODUCER, urgent care, hospital, or penitentiary...) When possible be specific @ -No Did you speak to anyone other than the patient for history (EMS, parent, family, police, friend...)? What history was obtained from this source @ -No Did you review nursing and triage notes (agree or disagree)? Why? @ -I reviewed and agree with nursing and triage notes Were old charts reviewed (outside hosp., previous admission, EMS record, old EKG, old radiological studies, urgent care reports/EKG's, penitentiary records)? Report findings @ -No old charts were reviewed Differential Diagnosis (chest pain, altered mental status, abdominal pain women, abdominal pain men, vaginal bleeding, weakness, fever, dyspnea, syncope, headache, dizziness, GI bleed, back pain, seizure, CVA, palpatations, mental health, musculoskeletal)? @ -Differential Abdominal Pain Men: Appendicitis, cholecystitis, diverticulosis, ischemic bowel, pancreatitis, hepat itis, UTI, gastroenteritis, AAA, incarcerated hernia, bowel obstruction, constipation, inflammatory bowel, hepatitis, peptic ulcer disease, splenic infarction, perforated viscus, testicular torsion, this is not meant to be an all-inclusive list Differential Musculoskeletal Muscular strain, contusion, ligament sprain, fracture, arthritis, septic arthritis, bursitis, cellulitis, muscle spasm, nerve compression, DVT, arterial occlusion, herpes zoster, electrolyte abnormality, tumor.... This is not meant to be in all inclusive list EKG interpreted by me (3pts min.). @ -As above X-rays interpreted by me (1pt min.). @ -None done CT interpreted by me (1pt min.). @ -CT abdomen and pelvis interpreted by me does demonstrate right inguinal hernia with no evidence of strangulation. No acute findings. There is noted a large prostate gland. U/S interpreted by me (1pt. min.). @ -None done What testing was considered but not performed or refused? (CT, X-rays, U/S, labs)? Why? @ -None What meds were considered but not given or refused? Why? @ -None Did you discuss the management of the patient with other professionals (professionals i.e. Dr., PA, SENIOR INTERACTIVE PRODUCER, lab, RT, psych nurse, child welfare social worker, hadoop analyst, teacher, juvenile corrections officer, piano case and bench assembler)? Give summary @ -No Was smoking cessation discussed for >3mins.? @ -No Was critical care preformed (if so, how long)? @ -No Were there social determinants of health that impacted care today? How? (Home lessness, low income, unemployed, alcoholism, drug addiction, transportation, low edu. Level, literacy, decrease access to med. care, [facility], rehab)? @ -No Was there de-escalation of care discussed even if they declined (Discuss DNR or withdrawal of care, Hospice)? DNR status @ -No What co-morbidities impacted this encounter? (DM, HTN, Smoking, COPD, CAD, Cancer, CVA, ARF, Chemo, Hep., AIDS, mental health diagnosis, sleep apnea, morbid obesity)? @ -None Was patient admitted / discharged? Hospital course, mention meds given and route, prescriptions, significant lab abnormalities, going to OR and other pertinent info. @ -Discharge 67-year-old male presents to the ED with a chief complaint of right groin pain ongoing for the past few months but recently worsening over the past few days. On exam there is a spontaneously reducing right inguinal hernia with no evidence of incarceration/strangulation. Laboratory studies including CBC, CMP, lactic acid unremarkable however there does appear to be blood in the urine. CT abdomen and pelvis revealed no acute findings. Patient discharged home in stable condition and advised to follow-up with PCP. Discussed return precautions with patient who verbalizes agreement. Undiagnosed new problem with uncertain prognosis? @ -No Drug Therapy requiring intensive monitoring for toxicity (Heparin, Nitro, Insulin, Cardizem)? @ -No Were any procedures done? @ -No Diagnosis/symptom? @ -Right inguinal hernia Acute, or Chronic, or Acute on Chronic? @ -Acute Uncomplicated (without systemic symptoms) or Complicated (systemic symptoms)? @ -Uncomplicated Side effects of treatment? @ -No Exacerbation, Progression, or Severe Exacerbation? @ -No Poses a threat to life or bodily function? How? (Chest pain, [place], [place], pneumonia, PE, COPD, DKA, ARF, appy, cholecystitis, CVA, Diverticulitis, Homicidal, Suicidal, threat to staff... and all critical care pts) @ -No (Deepak Sanchez) - Lab Data Lab Results 09/25/23 09/25/23 09/25/23 Range/Units 17:03 17:03 17:03 WBC 6.7 (3.8-10.6) k/uL RBC 4.38 (4.30-5.90) m/uL Hgb 12.4 L (13.0-17.5) gm/dL Hct 36.9 L (39.0-53.0) % MCV 84.2 (80.0-100.0) fL MCH 28.4 (25.0-35.0) pg MCHC 33.7 (31.0-37.0) g/dL RDW 13.3 (11.5-15.5) % Plt Count 367 (150-450) k/uL MPV 7.0 Neutrophils % 68 % Lymphocytes % 18 % Monocytes % 7 % Eosinophils % 4 % Basophils % 1 % Neutrophils # 4.6 (1.3-7.7) k/uL Lymphocytes # 1.2 (1.0-4.8) k/uL Monocytes # 0.5 (0-1.0) k/uL Eosinophils # 0.3 (0-0.7) k/uL Basophils # 0.1 (0-0.2) k/uL Sodium 136 L (137-145) mmol/L Potassium 4.4 (3.5-5.1) mmol/L Chloride 101 (98-107) mmol/L Carbon Dioxide 23 (22-30) mmol/L Anion Gap 12 mmol/L BUN 27 H (9-20) mg/dL Creatinine 0.98 (0.66-1.25) mg/dL Est GFR (CKD-EPI)AfAm >90 (>60 ml/min/1.73 sqM) Est GFR (CKD-EPI)NonAf 80 (>60 ml/min/1.73 sqM) Glucose 98 (74-99) mg/dL Plasma Lactic Acid Colt (0.7-2.0) mmol/L Calcium 9.6 (8.4-10.2) mg/dL Total Bilirubin 0.4 (0.2-1.3) mg/dL AST 28 (17-59) U/L ALT 22 (4-49) U/L Alkaline Phosphatase 75 (38-126) U/L Total Protein 7.4 (6.3-8.2) g/dL Albumin 4.4 (3.5-5.0) g/dL Urine Color Light Yellow Urine Appearance Clear (Clear) Urine pH 5.5 (5.0-8.0) Ur Specific Gordon 1.023 (1.001-1.035) Urine Protein Trace H (Negative) Urine Glucose (UA) Negative (Negative) Urine Ketones Negative (Negative) Urine Blood Large H (Negative) Urine Nitrite Negative (Negative) Urine Bilirubin Negative (Negative) Urine Urobilinogen <2.0 (<2.0) mg/dL Ur Leukocyte Esterase Negative (Negative) Urine RBC 179 H (0-5) /hpf Urine WBC 2 (0-5) /hpf Urine Mucus Occasional H (None) /hpf 09/25/23 Range/Units 19:43 WBC (3.8-10.6) k/uL RBC (4.30-5.90) m/uL Hgb (13.0-17.5) gm/dL Hct (39.0-53.0) % MCV (80.0-100.0) fL MCH (25.0-35.0) pg MCHC (31.0-37.0) g/dL RDW (11.5-15.5) % Plt Count (150-450) k/uL MPV Neutrophils % % Lymphocytes % % Monocytes % % Eosinophils % % Basophils % % Neutrophils # (1.3-7.7) k/uL Lymphocytes # (1.0-4.8) k/uL Monocytes # (0-1.0) k/uL Eosinophils # (0-0.7) k/uL Basophils # (0-0.2) k/uL Sodium (137-145) mmol/L Potassium (3.5-5.1) mmol/L Chloride (98-107) mmol/L Carbon Dioxide (22-30) mmol/L Anion Gap mmol/L BUN (9-20) mg/dL Creatinine (0.66-1.25) mg/dL Est GFR (CKD-EPI)AfAm (>60 ml/min/1.73 sqM) Est GFR (CKD-EPI)NonAf (>60 ml/min/1.73 sqM) Glucose (74-99) mg/dL Plasma Lactic Acid Colt 1.3 (0.7-2.0) mmol/L Calcium (8.4-10.2) mg/dL Total Bilirubin (0.2-1.3) mg/dL AST (17-59) U/L ALT (4-49) U/L Alkaline Phosphatase (38-126) U/L Total Protein (6.3-8.2) g/dL Albumin (3.5-5.0) g/dL Urine Color Urine Appearance (Clear) Urine pH (5.0-8.0) Ur Specific Gordon (1.001-1.035) Urine Protein (Negative) Urine Glucose (UA) (Negative) Urine Ketones (Negative) Urine Blood (Negative) Urine Nitrite (Negative) Urine Bilirubin (Negative) Urine Urobilinogen (<2.0) mg/dL Ur Leukocyte Esterase (Negative) Urine RBC (0-5) /hpf Urine WBC (0-5) /hpf Urine Mucus (None) /hpf Disposition <Maribell Krishnamurthy - Last Filed: 09/25/23 16:59> Is patient prescribed a controlled substance at d/c from ED?: No Time of Disposition: 22:36 <Deepak Sanchez - Last Filed: 09/25/23 22:36> Clinical Impression: Inguinal hernia Disposition: HOME SELF-CARE Condition: Good Additional Instructions: Please return to the Emergency Department if symptoms worsen or any other concerns. Please follow up with Dr. Coronel. Referrals: Nirav Lee MD [Primary Care Provider] - 1-2 days
[2023-09-25 17:37] LABS: Basophils # (A) 0.1 k/uL (0-0.2); Basophils % (A) 1 %; Eosinophils # (A) 0.3 k/uL (0-0.7); Eosinophils % (A) 4 %; HCT 36.9 % (39.0-53.0); HGB 12.4 gm/dL (13.0-17.5); Lymphocytes # (A) 1.2 k/uL (1.0-4.8); Lymphocytes % (A) 18 %; MCH 28.4 pg (25.0-35.0); MCHC 33.7 g/dL (31.0-37.0); MCV 84.2 fL (80.0-100.0); Monocytes # (A) 0.5 k/uL (0-1.0); Monocytes % (A) 7 %; Neutrophils # (A) 4.6 k/uL (1.3-7.7); Neutrophils % (A) 68 %; Platelet Count 367 k/uL (150-450); RBC 4.38 m/uL (4.30-5.90); RDW 13.3 % (11.5-15.5); WBC 6.7 k/uL (3.8-10.6)
[2023-09-25 17:41] LABS: Appearance,Urine Clear (Clear); Bilirubin,Urine Negative (Negative); Blood,Urine Large (Negative); Color,Urine Light Yellow; Glucose,Urine (UA) Negative (Negative); Ketones,Urine Negative (Negative); Leukocyte Esterase,Urine Negative (Negative); Mucus,Urine Occasional /hpf; Nitrite,Urine Negative (Negative); PH, Urine 5.5 (5.0-8.0); Protein,Urine Trace (Negative); RBC,Urine 179 /hpf (0-5); Specific Gravity,Urine 1.023 (1.001-1.035); Urobilinogen,Urine <2.0 mg/dL (<2.0); WBC,Urine 2 /hpf (0-5)
[2023-09-25 17:49] LABS: ALT 22 U/L (4-49); AST 28 U/L (17-59); African American GFR (CKD) >90 (>60 ml/min/1.73 sqM); Albumin 4.4 g/dL (3.5-5.0); Alkaline Phosphatase 75 U/L (38-126); Anion Gap 12 mmol/L; Blood Urea Nitrogen 27 mg/dL (9-20); Calcium 9.6 mg/dL (8.4-10.2); Carbon Dioxide 23 mmol/L (22-30); Chloride 101 mmol/L (98-107); Glucose 98 mg/dL (74-99); Non-African American GFR(CKD) 80 (>60 ml/min/1.73 sqM); Potassium 4.4 mmol/L (3.5-5.1); Sodium 136 mmol/L (137-145); Total Bilirubin 0.4 mg/dL (0.2-1.3); Total Protein 7.4 g/dL (6.3-8.2)
[2023-09-25] MEDS ORDERED: SODIUM CHLORIDE 0.9% 1,000 ML IV STA (19:40)
[2023-09-25] MEDS ORDERED: KETOROLAC 15 MG/ML 1 ML VIAL IVP STA (19:40)
--- NOTE | 2023-09-25 22:04 | CT ---
EXAMINATION TYPE: CT abdomen pelvis wo con CT DLP: 601.4 mGycm, Automated exposure control for dose reduction was used. DATE OF EXAM: 09/25/2023 7:51 PM COMPARISON: None. CLINICAL INDICATION:Male, 67 years old with history of r groin pain. hematuria; right groin pain x fe w weeks TECHNIQUE: Axial CT of the abdomen and pelvis without contrast. Sagittal and coronal reformats were created on a separate workstation. Contrast used: mL of , (none if empty) Oral contrast used: without Oral Contrast (none if empty) FINDINGS: Exam is limited without contrast. LOWER CHEST: Heart is borderline mildly enlarged. Pericardial fat is mildly prominent. No pericardial effusion. There is a mild to moderate amount of coronary arterial calcification seen. Small to moder ate sized hiatal hernia. Visualized descending aorta is rather tortuous laterally and posteriorly. ABDOMEN LIVER: Unremarkable GALLBLADDER AND BILE DUCTS: Unremarkable gallbladder. No biliary ductal dilatation. PANCREAS: Fatty infiltrated without acute finding. SPLEEN: Unremarkable. ADRENAL GLANDS: Unremarkable. KIDNEYS AND URETERS: No clear evidence of renal calculi or hydronephrosis. There are several pelvic p hleboliths which can interfere with interpretation but no definite ureteral calculi can be detected. Evaluation limited without contrast but there are bilateral renal hypodensities. Those in the right k idney are too small to characterize but have the appearance of cysts. On the left, a 6.2 cm lower meir e cyst and 2.7 cm upper pole cyst are present. Another 1.5 cm lesion from the upper pole left kidney posteriorly is likely also a cyst. PELVIS BLADDER: A rounded calcification seen close to the inferior bladder anteriorly on axial imaging, is s hown on multiplanar imaging to be outside the bladder and is probably a phlebolith. Bladder is otherw ise unremarkable, aside from mild indentation by the prostate. REPRODUCTIVE: Prostate is enlarged measuring up to 4.8 cm transverse ABDOMEN & PELVIS STOMACH AND BOWEL: Heterogeneous mixed low and high attenuation material within the stomach, likely i ngested food however any possible mucosal lesions could be obscured. Stomach and small bowel are nond istended, there is no evidence of obstruction. There is fatty infiltration of the ileocecal valve. Ap pendix is not identified with certainty, however there is no inflammatory process seen in the RLQ. Mo derate slightly radiodense stool is present throughout the proximal aspects of the colon, gradually d ecreasing more distally. There are numerous sigmoid region diverticula without clear evidence of infl ammation to suggest diverticulitis. Somewhat thickened appearance of the colon through the region of greatest diverticula, is probably due to the diverticular disease changes itself. PERITONEUM/RETROPERITONEUM: No evidence of pneumoperitoneum or free fluid. VASCULATURE: Moderate atherosclerotic calcifications are present throughout the abdominal aorta and i ts branches. No evidence of aortic aneurysm. Abdominal aorta is noted to be tortuous. Right common i liac artery 1.4 cm across, left is 1.25 cm. LYMPH NODES: Several bilateral inguinal lymph nodes are seen, slightly larger and more numerous on th e right. One of the largest on the right has a short axis of 9 mm. Otherwise no enlarged by criteria nodes in the abdomen or pelvis. SOFT TISSUE/ABDOMINAL WALL: Small to moderate sized fat-containing right inguinal hernia. Tiny fat-co ntaining umbilical hernia. MUSCULOSKELETAL: No acute osseous abnormalities. Mild/moderate disc degeneration changes are present throughout the thoracolumbar spine. No destructive bony lesion. Small sclerotic density in S2 anterio rly, could be bone island. Mild bilateral hip arthropathy with small subcortical cysts in the proxima l femurs. IMPRESSION: 1. No evidence of urinary tract calculi or hydronephrosis. 2. Limited unenhanced study otherwise shows no acute inflammatory or obstructive process in the abdo men or pelvis. 3. Colonic diverticula are present, without signs of inflammation to suggest diverticulitis. 4. Enlarged prostate gland, as above. Clinical and PSA correlation recommended. 5. Moderate calcification throughout the aorta, with tortuosity noted throughout the lower chest, ab domen and pelvis. No AAA. 6. Borderline cardiomegaly with mild/moderate coronary arterial calcifications. 7. Small to moderate hiatal hernia. 8. Small to moderate fat-containing right inguinal hernia.
[2023-09-25 22:51] VITALS: BP 108/70; PULSE 70; RESP 18
== END 2023-09-25 22:45 | disposition home or self-care (01) ==
LOC: EC 15:46
DX: K40.90 Unilateral inguinal hernia, without obstruction or gangrene, not specified as recurrent (principal); K44.9 Diaphragmatic hernia without obstruction or gangrene; K57.30 Diverticulosis of large intestine without perforation or abscess without bleeding; I10 Essential (primary) hypertension; E78.5 Hyperlipidemia, unspecified; Z79.82 Long term (current) use of aspirin; Z79.899 Other long term (current) drug therapy
CPT/HCPCS: 36415; 80053; 83605; 85025; 81001; 74176; 99284; 96374; J1885

== ENCOUNTER 2023-09-26 06:10 | Inpatient (IN) | payer OTHER, MEDICARE ==
[2023-09-26] MEDS ORDERED: HYDROmorphone 0.5 MG/0.5 ML SYRINGE IVP STA (06:21)
[2023-09-26] MEDS ORDERED: KETOROLAC 15 MG/ML 1 ML VIAL IVP STA ×2 (06:21→10:51)
[2023-09-26] MEDS ORDERED: ONDANSETRON 4 MG/2 ML VIAL IVP STA (06:21)
[2023-09-26] MEDS ORDERED: SODIUM CHLORIDE 0.9% 2,000 ML IV STA (06:21)
--- NOTE | 2023-09-26 06:41 | ED ---
Abdominal Pain HPI - General Source: patient, RN notes reviewed Mode of arrival: ambulatory Limitations: no limitations <Anthony Schwartz - Last Filed: 09/26/23 06:40> <Daniel Gutiérrez - Last Filed: 09/26/23 11:24> - General Chief Complaint: Abdominal Pain Stated Complaint: ABD pain Time Seen by Provider: 09/26/23 06:40 - History of Present Illness Initial Comments: 67-year-old male presents emergency Department with chief complaint of right groin pain, right flank pain. Patient seen here yesterday had laboratory studies and CT. Patient states pain is worsened. He states the pain is rating more to his flank into more consistent with kidney stone. He did have noted hematuria but CT does not show evidence of kidney stone. Patient states that he's had multiple stones in the past and feels very similar. Patient denies any fevers or chills he does admit to nausea. Nothing makes the pain feel better or feel worse. (Anthony Schwartz) - Related Data Home Medications Medication Instructions Recorded Confirmed Losartan/Hydrochlorothiazide 1 tab PO QAM 06/24/20 02/20/23 [Losartan-Hctz 100-12.5 mg Tab] Rosuvastatin Calcium 20 mg PO DAILY 06/24/20 02/20/23 Acetaminophen [Tylenol] 325 mg PO Q4H PRN 10/29/22 02/20/23 Fexofenadine/Pseudoephedrine 1 tab PO DAILY 10/29/22 02/20/23 [Tri-D 24 Hour Tablet] Aspirin [Adult Low Dose Aspirin EC] 81 mg PO DAILY PRN 01/31/23 02/20/23 Naproxen Sodium [Naproxen Sodium 500 mg PO BID 02/24/23 02/24/23 ER] Previous Rx's Medication Instructions Recorded traMADol HCl [Ultram] 50 mg PO Q6H PRN #21 tab 02/24/23 Allergies Allergy/AdvReac Type Severity Reaction Status Date / Time No Known Allergies Allergy Verified 09/25/23 16:36 Review of Systems ROS Other: All systems not noted in ROS Statement are negative. <Anthony Schwartz - Last Filed: 09/26/23 06:40> ROS Other: All systems not noted in ROS Statement are negative. <Daniel Gutiérrez - Last Filed: 09/26/23 11:24> ROS Statement: Those systems with pertinent positive or pertinent negative responses have been documented in the HPI. Past Medical History Past Medical History: Hyperlipidemia, Hypertension Additional Past Medical History / Comment(s): kidney stones History of Any Multi-Drug Resistant Organisms: None Reported Past Surgical History: Hernia Repair, Orthopedic Surgery Additional Past Surgical History / Comment(s): lithotripsyleft inguinal hernia Past Anesthesia/Blood Transfusion Reactions: No Reported Reaction, Motion Sickness Additional Past Anesthesia/Blood Transfusion Reaction / Comment(s): vertigo. no hx blood transfusion Past Psychological History: No Psychological Hx Reported Smoking Status: Never smoker Past Alcohol Use History: None Reported Past Drug Use History: None Reported - Past Family History Sister(s) Family Medical History: Cancer Additional Family Medical History / Comment(s): skin CA <Anthony Schwartz - Last Filed: 09/26/23 06:40> General Exam Limitations: no limitations <Anthony Schwartz - Last Filed: 09/26/23 06:40> General appearance: alert, in distress Head exam: Present: atraumatic, normocephalic Eye exam: Present: normal appearance, PERRL ENT exam: Present: normal exam Neck exam: Present: normal inspection. Absent: tenderness, meningismus Respiratory exam: Present: normal lung sounds bilaterally. Absent: respiratory distress, wheezes Cardiovascular Exam: Present: regular rate, normal rhythm GI/Abdominal exam: Present: tenderness, hernia (Right inguinal) Neurological exam: Present: alert, oriented X3 Psychiatric exam: Present: normal affect, normal mood <Daniel Gutiérrez - Last Filed: 09/26/23 11:24> - General Exam Comments Initial Comments: Visual Physical Exam Vital signs reviewed General: Well-appearing, nontoxic, no acute distress. Head: Normocephalic, atraumatic Eyes: PERRLA, EOMI ENT: Airway patent Chest: Nonlabored breathing Skin: No visual rash, normal skin tone Neuro: Alert and oriented 3 Musculoskeletal: No gross abnormalities (Anthony Schwartz) Course Vital Signs 09/26/23 09/26/23 09/26/23 06:16 07:30 08:30 Temperature 98.7 F Pulse Rate 80 67 68 Respiratory 18 22 24 Rate Blood Pressure 138/88 136/93 139/97 O2 Sat by Pulse 95 98 100 Oximetry 09/26/23 09/26/23 09/26/23 09:31 10:01 10:31 Temperature Pulse Rate 64 68 67 Respiratory 22 20 22 Rate Blood Pressure 138/96 135/92 118/58 O2 Sat by Pulse 97 96 98 Oximetry 09/26/23 11:15 Temperature Pulse Rate 66 Respiratory 16 Rate Blood Pressure 126/89 O2 Sat by Pulse 98 Oximetry Medical Decision Making <Anthony Schwartz - Last Filed: 09/26/23 06:40> - Lab Data Result diagrams: 09/26/23 07:03 09/26/23 07:03 <Daniel Gutiérrez Viktoriya - Last Filed: 09/26/23 11:24> - Medical Decision Making I completed the quick note portion of this chart signed Anthony Schwartz PA-C (Anthony Schwartz) Was pt. sent in by a medical professional or institution (THONG Chapman, SPECIAL DELIVERY CLERK, urgent care, hospital, or snf...) When possible be specific @ -No Did you speak to anyone other than the patient for history (EMS, parent, family, police, friend...)? What history was obtained from this source @ -No Did you review nursing and triage notes (agree or disagree)? Why? @ -I reviewed and agree with nursing and triage notes Were old charts reviewed (outside hosp., previous admission, EMS record, old EKG, old radiological studies, urgent care reports/EKG's, snf records)? Report findings @ -No old charts were reviewed Differential Diagnosis (chest pain, altered mental status, abdominal pain women, abdominal pain men, vaginal bleeding, weakness, fever, dyspnea, syncope, headache, dizziness, GI bleed, back pain, seizure, CVA, palpatations, mental health, musculoskeletal)? @ -Differential Abdominal Pain Men: Appendicitis, cholecystitis, diverticulosis, ischemic bowel, pancreatitis, hepatitis, UTI, gastroenteritis, AAA, incarcerated hernia, bowel obstruction, constipation, inflammatory bowel, hepatitis, peptic ulcer disease, splenic infarction, perforated viscus, testicular torsion, this is not meant to be an all-inclusive list EKG interpreted by me (3pts min.). @ -As above X-rays interpreted by me (1pt min.). @ -None done CT interpreted by me (1pt min.). @ CT showing a distal right obstructing kidney stone with hydronephrosis and hydroureter. U/S interpreted by me (1pt. min.). @ -None done What testing was considered but not performed or refused? (CT, X-rays, U/S, labs)? Why? @ -None What meds were considered but not given or refused? Why? @ -None Did you discuss the management of the patient with other professionals (professionals i.e. Dr., PA, SPECIAL DELIVERY CLERK, lab, RT, psych nurse, social science manager, sewer builder, teacher, learning and development officer, bilingual case manager)? Give summary @ -No Was smoking cessation discussed for >3mins.? @ -No Was critical care preformed (if so, how long)? @ -No Were there social determinants of health that impacted care today? How? (Homelessness, low income, unemployed, alcoholism, drug addiction, transportation, low edu. Level, literacy, decrease access to med. care, prison, rehab)? @ -No Was there de-escalation of care discussed even if they declined (Discuss DNR or withdrawal of care, Hospice)? DNR status @ -No What co-morbidities impacted this encounter? (DM, HTN, Smoking, COPD, CAD, Cancer, CVA, ARF, Chemo, Hep., AIDS, mental health diagnosis, sleep apnea, morbid obesity)? @ -[History of kidney stones. Was patient admitted / discharged? Hospital course, mention meds given and route, prescriptions, significant lab abnormalities, going to OR and other pertinent info. @ -[She admitted to medicine with urology on consult for intractable pain secondary to obstructing renal stone. Undiagnosed new problem with uncertain prognosis? @ -No Drug Therapy requiring intensive monitoring for toxicity (Heparin, Nitro, Insulin, Cardizem)? @ -No Were any procedures done? @ -No Diagnosis/symptom? @ -[Renal colic, obstructing kidney stone Acute, or Chronic, or Acute on Chronic? @ Acute Uncomplicated (without systemic symptoms) or Complicated (systemic symptoms)? @ -default Side effects of treatment? @ -No Exacerbation, Progression, or Severe Exacerbation? @ -No Poses a threat to life or bodily function? How? (Chest pain, [place], NH, pneumonia, PE, COPD, DKA, ARF, appy, cholecystitis, CVA, Diverticulitis, Homicidal, Suicidal, threat to staff... and all critical care pts) @ -low Risk (BrockDaniel Viktoriya) - Lab Data Lab Results 09/26/23 09/26/23 09/26/23 Range/Units 07:03 07:03 07:03 WBC 6.3 (3.8-10.6) k/uL RBC 4.34 (4.30-5.90) m/uL Hgb 12.2 L (13.0-17.5) gm/dL Hct 36.5 L (39.0-53.0) % MCV 84.2 (80.0-100.0) fL MCH 28.1 (25.0-35.0) pg MCHC 33.4 (31.0-37.0) g/dL RDW 13.4 (11.5-15.5) % Plt Count 362 (150-450) k/uL MPV 6.9 Neutrophils % 68 % Lymphocytes % 18 % Monocytes % 8 % Eosinophils % 4 % Basophils % 1 % Neutrophils # 4.3 (1.3-7.7) k/uL Lymphocytes # 1.1 (1.0-4.8) k/uL Monocytes # 0.5 (0-1.0) k/uL Eosinophils # 0.3 (0-0.7) k/uL Basophils # 0.1 (0-0.2) k/uL Sodium 140 (137-145) mmol/L Potassium 3.9 (3.5-5.1) mmol/L Chloride 105 (98-107) mmol/L Carbon Dioxide 21 L (22-30) mmol/L Anion Gap 14 mmol/L BUN 28 H (9-20) mg/dL Creatinine 1.12 (0.66-1.25) mg/dL Est GFR (CKD-EPI)AfAm 78 (>60 ml/min/1.73 sqM) Est GFR (CKD-EPI)NonAf 68 (>60 ml/min/1.73 sqM) Glucose 118 H (74-99) mg/dL Plasma Lactic Acid Colt (0.7-2.0) mmol/L Calcium 9.3 (8.4-10.2) mg/dL Total Bilirubin 0.5 (0.2-1.3) mg/dL AST 26 (17-59) U/L ALT 21 (4-49) U/L Alkaline Phosphatase 74 (38-126) U/L Total Protein 7.0 (6.3-8.2) g/dL Albumin 4.1 (3.5-5.0) g/dL Lipase 127 (23-300) U/L Urine Color Light Yellow Urine Appearance Clear (Clear) Urine pH 5.5 (5.0-8.0) Ur Specific [place] 1.023 (1.001-1.035) Urine Protein Negative (Negative) Urine Glucose (UA) Negative (Negative) Urine Ketones Negative (Negative) Urine Blood Moderate H (Negative) Urine Nitrite Negative (Negative) Urine Bilirubin Negative (Negative) Urine Urobilinogen <2.0 (<2.0) mg/dL Ur Leukocyte Esterase Trace H (Negative) Urine RBC 86 H (0-5) /hpf Urine WBC 6 H (0-5) /hpf Ur Squamous Epith Cells 1 (0-4) /hpf Hyaline Casts 1 (0-2) /lpf Urine Mucus Moderate H (None) /hpf 09/26/23 Range/Units 07:03 WBC (3.8-10.6) k/uL RBC (4.30-5.90) m/uL Hgb (13.0-17.5) gm/dL Hct (39.0-53.0) % MCV (80.0-100.0) fL MCH (25.0-35.0) pg MCHC (31.0-37.0) g/dL RDW (11.5-15.5) % Plt Count (150-450) k/uL MPV Neutrophils % % Lymphocytes % % Monocytes % % Eosinophils % % Basophils % % Neutrophils # (1.3-7.7) k/uL Lymphocytes # (1.0-4.8) k/uL Monocytes # (0-1.0) k/uL Eosinophils # (0-0.7) k/uL Basophils # (0-0.2) k/uL Sodium (137-145) mmol/L Potassium (3.5-5.1) mmol/L Chloride (98-107) mmol/L Carbon Dioxide (22-30) mmol/L Anion Gap mmol/L BUN (9-20) mg/dL Creatinine (0.66-1.25) mg/dL Est GFR (CKD-EPI)AfAm (>60 ml/min/1.73 sqM) Est GFR (CKD-EPI)NonAf (>60 ml/min/1.73 sqM) Glucose (74-99) mg/dL Plasma Lactic Acid Colt 1.3 (0.7-2.0) mmol/L Calcium (8.4-10.2) mg/dL Total Bilirubin (0.2-1.3) mg/dL AST (17-59) U/L ALT (4-49) U/L Alkaline Phosphatase (38-126) U/L Total Protein (6.3-8.2) g/dL Albumin (3.5-5.0) g/dL Lipase (23-300) U/L Urine Color Urine Appearance (Clear) Urine pH (5.0-8.0) Ur Specific [place] (1.001-1.035) Urine Protein (Negative) Urine Glucose (UA) (Negative) Urine Ketones (Negative) Urine Blood (Negative) Urine Nitrite (Negative) Urine Bilirubin (Negative) Urine Urobilinogen (<2.0) mg/dL Ur Leukocyte Esterase (Negative) Urine RBC (0-5) /hpf Urine WBC (0-5) /hpf Ur Squamous Epith Cells (0-4) /hpf Hyaline Casts (0-2) /lpf Urine Mucus (None) /hpf Disposition <Anthony Schwartz M - Last Filed: 09/26/23 06:40> Is patient prescribed a controlled substance at d/c from ED?: No Time of Disposition: 11:24 <Daniel Gutiérrez - Last Filed: 09/26/23 11:24> Clinical Impression: Calculus of kidney Disposition: ADMITTED IP TO THIS HOSP Condition: Stable Referrals: Nirav Lee MD [Primary Care Provider] - 1-2 days
[2023-09-26 07:19] LABS: Basophils # (A) 0.1 k/uL (0-0.2); Basophils % (A) 1 %; Eosinophils # (A) 0.3 k/uL (0-0.7); Eosinophils % (A) 4 %; HCT 36.5 % (39.0-53.0); HGB 12.2 gm/dL (13.0-17.5); Lymphocytes # (A) 1.1 k/uL (1.0-4.8); Lymphocytes % (A) 18 %; MCH 28.1 pg (25.0-35.0); MCHC 33.4 g/dL (31.0-37.0); MCV 84.2 fL (80.0-100.0); Mean Platelet Volume 6.9; Monocytes # (A) 0.5 k/uL (0-1.0); Monocytes % (A) 8 %; Neutrophils # (A) 4.3 k/uL (1.3-7.7); Neutrophils % (A) 68 %; Platelet Count 362 k/uL (150-450); RBC 4.34 m/uL (4.30-5.90); RDW 13.4 % (11.5-15.5); WBC 6.3 k/uL (3.8-10.6)
[2023-09-26 07:36] LABS: ALT 21 U/L (4-49); AST 26 U/L (17-59); African American GFR (CKD) 78 (>60 ml/min/1.73 sqM); Albumin 4.1 g/dL (3.5-5.0); Alkaline Phosphatase 74 U/L (38-126); Anion Gap 14 mmol/L; Blood Urea Nitrogen 28 mg/dL (9-20); Calcium 9.3 mg/dL (8.4-10.2); Carbon Dioxide 21 mmol/L (22-30); Chloride 105 mmol/L (98-107); Glucose 118 mg/dL (74-99); Lipase 127 U/L (23-300); Non-African American GFR(CKD) 68 (>60 ml/min/1.73 sqM); Potassium 3.9 mmol/L (3.5-5.1); Sodium 140 mmol/L (137-145); Total Bilirubin 0.5 mg/dL (0.2-1.3)
--- NOTE | 2023-09-26 08:22 | XR ---
EXAMINATION TYPE: XR KUB DATE OF EXAM: 09/26/2023 8:20 AM CLINICAL INDICATION: 67-year-old male with abdominal pain. COMPARISON: 02/09/2013. TECHNIQUE: One radiographic view of the abdomen was obtained. FINDINGS: The bowel gas pattern is nonspecific without dilated loops of small or large bowel. Moderat e amount of stool within the right colon. There is no evidence for organomegaly or pneumoperitoneum. The osseous structures are intact. No scattered pelvic phlebolith are present. Multilevel degenerat ion changes throughout the spine. Fecal material and gas are demonstrated throughout the colon and re ctum. Atherosclerosis of the arterial vasculature. IMPRESSION: Nonspecific bowel gas pattern without radiographic evidence for acute process.
[2023-09-26] MEDS ORDERED: HYDROmorphone 1 MG/ML 1 ML SYRINGE IVP STA ×2 (08:31→10:25)
[2023-09-26 09:52] LABS: Appearance,Urine Clear (Clear); Bilirubin,Urine Negative (Negative); Blood,Urine Moderate (Negative); Color,Urine Light Yellow; Glucose,Urine (UA) Negative (Negative); Hyaline Casts,Urine 1 /lpf (0-2); Ketones,Urine Negative (Negative); Leukocyte Esterase,Urine Trace (Negative); Mucus,Urine Moderate /hpf; Nitrite,Urine Negative (Negative); PH, Urine 5.5 (5.0-8.0); Protein,Urine Negative (Negative); RBC,Urine 86 /hpf (0-5); Specific Gravity,Urine 1.023 (1.001-1.035); Squamous Epithelial Cell,Urine 1 /hpf (0-4); Urobilinogen,Urine <2.0 mg/dL (<2.0); WBC,Urine 6 /hpf (0-5)
--- NOTE | 2023-09-26 10:45 | CT ---
EXAMINATION TYPE: CT abdomen pelvis w con DATE OF EXAM: 09/26/2023 COMPARISON: Prior CT one day earlier HISTORY: lower abdominal pain, nausea and vomiting. pt had ct scan of abd/pelvis wo contrast yesterda y. CT DLP: 1008.50 mGycm, Automated Exposure Control for Dose Reduction was Utilized. CONTRAST: CT scan of the abdomen and pelvis is performed without oral and with IV Contrast, patient injected wi th 100 mL of Isovue 300. FINDINGS: LUNG BASES: No significant abnormality is appreciated. LIVER/GB: No significant abnormality is appreciated. PANCREAS: No significant abnormality is seen. SPLEEN: No significant abnormality is seen. ADRENALS: No significant abnormality is seen. KIDNEYS: A few simple-appearing thin-walled cysts scattered throughout both kidneys are redemonstrate d. There is symmetric cortical medullary uptake with at least delayed secretion in the right kidney. There is 3 to 4 mm calculus in the distal right ureter axial image 73, in retrospect was present on p rior CT. Asymmetric mild right-sided hydronephrosis on current study is new from prior study. BOWEL: Stable small to moderate size hiatal hernia. Sigmoid colonic diverticulosis redemonstrated. No CT evidence for acute diverticulitis. No abnormal small or large bowel dilatation. PROSTATE/SEMINAL VESICLES: Prostate gland is mildly enlarged in size. LYMPH NODES: No greater than 1cm abdominal or pelvic lymph nodes are appreciated. OSSEOUS STRUCTURES: No significant abnormality is seen. OTHER: Small size fat-containing right inguinal hernia redemonstrated. Mild calcified plaque of the a kim extends into branch vessels. IMPRESSION: There is subtle 3 to 4 mm distal right ureter calculus now causing mild to minimal right- sided hydronephrosis.
[2023-09-26] MEDS: SODIUM CHLORIDE 0.9% 1,000 ML IV SCH (11:12)
[2023-09-26] MEDS ORDERED: NALOXONE 0.4 MG/ML 1 ML VIAL IV PRN (11:21)
[2023-09-26] MEDS ORDERED: ONDANSETRON 4 MG/2 ML VIAL IVP PRN (11:21)
[2023-09-26] MEDS ORDERED: ACETAMINOPHEN TAB 325 MG TAB PO PRN (11:21)
--- NOTE | 2023-09-26 15:05 | P.GSCN ---
History of Present Illness Consult date: 09/26/23 Reason for Consult: Right ureteral stone History of present illness: This is a 67-year-old male that presented to the ER with intractable right flank pain associated with gross hematuria. He has had 2 emergency room presentation secondary to pain. In the ER he underwent a CT abdomen and pelvis that showed evidence of a 3 mm right-sided distal ureteral stone. He has required multiple IV pain medications patient continues to have pain. Denies any dysuria. Does have previous history of kidney stones which he passed spontaneously, but one occasion did require ESWL in the past. denies any fevers or chills. Of note CT also showed evidence of a right-sided inguinal hernia Review of Systems - Constitutional Denies fever, Denies weight loss - EENT Ears, nose, mouth and throat: Denies dysphagia - Cardiovascular Denies chest pain, Denies shortness of breath - Respiratory Denies cough, Denies 7 - Gastrointestinal Reports abdominal pain, Reports nausea, Denies vomiting - Genitourinary Reports flank pain, Reports hematuria, Denies dysuria Past Medical History Past Medical History: Hyperlipidemia, Hypertension Additional Past Medical History / Comment(s): kidney stones History of Any Multi-Drug Resistant Organisms: None Reported Past Surgical History: Hernia Repair, Orthopedic Surgery Additional Past Surgical History / Comment(s): lithotripsyleft inguinal hernia Past Anesthesia/Blood Transfusion Reactions: No Reported Reaction, Motion Sickness Additional Past Anesthesia/Blood Transfusion Reaction / Comm: vertigo. no hx blood transfusion Past Psychological History: No Psychological Hx Reported Smoking Status: Never smoker Past Alcohol Use History: None Reported Past Drug Use History: None Reported - Past Family History Sister(s) Family Medical History: Cancer Additional Family Medical History / Comment(s): skin CA Medications and Allergies Home Medications Medication Instructions Recorded Confirmed Type Losartan/Hydrochlorothiazide 1 tab PO DAILY 06/24/20 09/26/23 History [Losartan-Hctz 100-12.5 mg Tab] Rosuvastatin Calcium 20 mg PO DAILY 06/24/20 09/26/23 History Acetaminophen Tab [Tylenol] 1,000 mg PO Q4-6H PRN 09/26/23 09/26/23 History Sertraline [Zoloft] 50 mg PO DAILY 09/26/23 09/26/23 History Allergies Allergy/AdvReac Type Severity Reaction Status Date / Time No Known Allergies Allergy Verified 09/26/23 12:56 Surgical - Exam Vital Signs Temp Pulse Resp BP Pulse Ox 98.7 F 80 18 138/88 95 09/26/23 06:16 09/26/23 06:16 09/26/23 06:16 09/26/23 06:16 09/26/23 06:16 - General no distress, no pain - Eyes normal ocular movement, no pale - ENT normal nares, normal mucosa - Respiratory normal expansion, normal respiratory effort - Abdomen Abdomen: soft, tender (Right flank), no distended - Psychiatric oriented to time, oriented to person, oriented to place Results - Labs 09/26/23 07:03 09/26/23 07:03 Abnormal Lab Results - Last 24 Hours (Table) 09/26/23 09/26/23 09/26/23 Range/Units 07:03 07:03 07:03 Hgb 12.2 L (13.0-17.5) gm/dL Hct 36.5 L (39.0-53.0) % Carbon Dioxide 21 L (22-30) mmol/L BUN 28 H (9-20) mg/dL Glucose 118 H (74-99) mg/dL Urine Blood Moderate H (Negative) Ur Leukocyte Esterase Trace H (Negative) Urine RBC 86 H (0-5) /hpf Urine WBC 6 H (0-5) /hpf Urine Mucus Moderate H (None) /hpf Diabetes panel 09/26/23 Range/Units 07:03 Sodium 140 (137-145) mmol/L Potassium 3.9 (3.5-5.1) mmol/L Chloride 105 (98-107) mmol/L Carbon Dioxide 21 L (22-30) mmol/L BUN 28 H (9-20) mg/dL Creatinine 1.12 (0.66-1.25) mg/dL Glucose 118 H (74-99) mg/dL Calcium 9.3 (8.4-10.2) mg/dL AST 26 (17-59) U/L ALT 21 (4-49) U/L Alkaline Phosphatase 74 (38-126) U/L Total Protein 7.0 (6.3-8.2) g/dL Albumin 4.1 (3.5-5.0) g/dL Calcium panel 09/26/23 Range/Units 07:03 Calcium 9.3 (8.4-10.2) mg/dL Albumin 4.1 (3.5-5.0) g/dL Pituitary panel 09/26/23 Range/Units 07:03 Sodium 140 (137-145) mmol/L Potassium 3.9 (3.5-5.1) mmol/L Chloride 105 (98-107) mmol/L Carbon Dioxide 21 L (22-30) mmol/L BUN 28 H (9-20) mg/dL Creatinine 1.12 (0.66-1.25) mg/dL Glucose 118 H (74-99) mg/dL Calcium 9.3 (8.4-10.2) mg/dL Adrenal panel 09/26/23 Range/Units 07:03 Sodium 140 (137-145) mmol/L Potassium 3.9 (3.5-5.1) mmol/L Chloride 105 (98-107) mmol/L Carbon Dioxide 21 L (22-30) mmol/L BUN 28 H (9-20) mg/dL Creatinine 1.12 (0.66-1.25) mg/dL Glucose 118 H (74-99) mg/dL Calcium 9.3 (8.4-10.2) mg/dL Total Bilirubin 0.5 (0.2-1.3) mg/dL AST 26 (17-59) U/L ALT 21 (4-49) U/L Alkaline Phosphatase 74 (38-126) U/L Total Protein 7.0 (6.3-8.2) g/dL Albumin 4.1 (3.5-5.0) g/dL - Imaging CT scan - abdomen: image reviewed (3 mm right-sided distal stone, significant hydronephrosis) Assessment and Plan Assessment: This is a 67-year-old male with history of a 3 mm right-sided distal stone, having intractable pain secondary to stone. Discussed with him given the amount of pain and that he's had 2 emergency room presentation secondary to pain the option of a right-sided ureteroscopy with holmium laser and stent. Risks benefits and rational surgery was discussed in detail -Nothing by mouth past midnight -Or tomorrow for right-sided ureteroscopy with holmium laser lithotripsy, stone basketing and stent insertion
--- NOTE | 2023-09-26 16:50 | P.HPIM ---
History of Present Illness H&P Date: 09/26/23 Patient is a 67-year-old female with history of hypertension, dyslipidemia, depression/anxiety presenting with right-sided flank pain and right groin pain. He claims that he presented last night with similar complaints and thought it was his right inguinal hernia. CT was done which did not show any renal stone. This morning pain worsened and he presented to the hospital again at this time CT did show renal stone. He denies any nausea, vomiting, other abdominal pain, chest pain, shortness of breath, palpitations, other urinary or bowel complaints. In the ED, temperature was 98.7, pulse 80, respiratory rate 18, blood pressure 138/88, saturating at 95% on room air. WBC 6.3, hemoglobin 12.2, BUN 28, creatinine 1.12, bicarb 21, lipase 127, moderate urine blood, negative nitrites, trace leukocyte esterase. KUB showed nonspecific bowel gas pattern. Abdominal CT showed subtle 3-4 mm distal right ureteral calculus causing mild to minimal right-sided hydronephrosis. Patient admitted for obstructing right renal stone with hydronephrosis. Urology consulted. Pertinent positives and negatives as discussed in HPI, a complete review of systems was performed and all other systems are negative. Patient seen and examined at bedside. Vital signs reviewed General: nontoxic, no distress, appears at stated age Derm: warm, dry Head: atraumatic, normocephalic, symmetric Eyes: EOMI, no lid lag, anicteric sclera, pupils equal round reactive to light ENT: Nose and ears atraumatic Neck: No thyromegaly, supple Mouth: no lip lesion, mucus membranes moist Cardiovascular: S1S2 reg, no murmur, no edema Lungs: clear to auscultation bilateral, no rhonchi, no rales, no wheeze, no accessory muscle use Abdominal: soft, nontender to palpation, no guarding, no appreciable orga nomegaly Ext: no gross muscle atrophy, muscle strength muscle strength 5 out of 5 in all 4 extremities, no contractures Neuro: CN II-XII grossly intact Psych: Alert, oriented, appropriate affect Assessment/Plan: Obstructing right ureteral calculus Right-sided hydronephrosis -Continue IV fluids, normal saline at 75 mL an hour -Pain control with oral Tylenol as needed, IV Dilaudid as needed, IV Toradol as needed, monitor for sedation -Zofran 4 mg IV every 8 hours as needed for nausea -Urology consulted Hypertension -Hold hydrochlorothiazide as he can increase stone formation, continue losartan Hyperlipidemia - continue rosuvastatin 20 Depression/anxiety - continue sertraline 50 The patient is admitted with an anticipated greater than 2 midnight stay as inpatient status for evaluation of obstructing renal stone. Surrogate decision-maker: spouse CODE STATUS:FC DVT prophylaxis: SCDs Anticipated discharge date: pending clinical course Anticipated discharge place: pending clinical course A total of 55 minutes was spent on the care of this complex patient more than 50% of the time was spent in counseling and care coordination. Past Medical History Past Medical History: Hyperlipidemia, Hypertension Additional Past Medical History / Comment(s): kidney stones History of Any Multi-Drug Resistant Organisms: None Reported Past Surgical History: Hernia Repair, Orthopedic Surgery Additional Past Surgical History / Comment(s): lithotripsyleft inguinal hernia Past Anesthesia/Blood Transfusion Reactions: No Reported Reaction, Motion Sickness Additional Past Anesthesia/Blood Transfusion Reaction / Comment(s): vertigo. no hx blood transfusion Past Psychological History: No Psychological Hx Reported Smoking Status: Never smoker Past Alcohol Use History: None Reported Past Drug Use History: None Reported - Past Family History Sister(s) Family Medical History: Cancer Additional Family Medical History / Comment(s): skin CA Medications and Allergies Home Medications Medication Instructions Recorded Confirmed Type Losartan/Hydrochlorothiazide 1 tab PO DAILY 06/24/20 09/26/23 History [Losartan-Hctz 100-12.5 mg Tab] Rosuvastatin Calcium 20 mg PO DAILY 06/24/20 09/26/23 History Acetaminophen Tab [Tylenol] 1,000 mg PO Q4-6H PRN 09/26/23 09/26/23 History Sertraline [Zoloft] 50 mg PO DAILY 09/26/23 09/26/23 History Allergies Allergy/AdvReac Type Severity Reaction Status Date / Time No Known Allergies Allergy Verified 09/26/23 12:56 Physical Exam Vitals: Vital Signs Temp Pulse Resp BP Pulse Ox 09/26/23 15:06 56 L 17 113/77 100 09/26/23 14:20 97.6 F 54 L 17 103/71 98 09/26/23 12:15 97.6 F 61 17 113/77 97 09/26/23 11:15 66 16 126/89 98 09/26/23 10:31 67 22 118/58 98 09/26/23 10:01 68 20 135/92 96 09/26/23 09:31 64 22 138/96 97 09/26/23 08:30 68 24 139/97 100 09/26/23 07:30 67 22 136/93 98 09/26/23 06:16 98.7 F 80 18 138/88 95 Intake and Output 09/26/23 09/26/23 09/26/23 06:59 14:59 22:59 Other: Weight 88.451 kg Results CBC & Chem 7: 09/26/23 07:03 09/26/23 07:03 Labs: Abnormal Lab Results - Last 24 Hours (Table) 09/26/23 09/26/23 09/26/23 Range/Units 07:03 07:03 07:03 Hgb 12.2 L (13.0-17.5) gm/dL Hct 36.5 L (39.0-53.0) % Carbon Dioxide 21 L (22-30) mmol/L BUN 28 H (9-20) mg/dL Glucose 118 H (74-99) mg/dL Urine Blood Moderate H (Negative) Ur Leukocyte Esterase Trace H (Negative) Urine RBC 86 H (0-5) /hpf Urine WBC 6 H (0-5) /hpf Urine Mucus Moderate H (None) /hpf
[2023-09-26] MEDS: HYDROmorphone 0.5 MG/0.5 ML SYRINGE IVP PRN ×2 (18:24→21:50)
[2023-09-26] MEDS: KETOROLAC 15 MG/ML 1 ML VIAL IVP PRN (20:12)
[2023-09-27] MEDS: SODIUM CHLORIDE 0.9% 1,000 ML IV SCH ×3 (00:22→21:04)
[2023-09-27] MEDS: HYDROmorphone 1 MG/ML 1 ML SYRINGE IVP PRN ×2 (00:26→03:15)
[2023-09-27] MEDS: KETOROLAC 15 MG/ML 1 ML VIAL IVP PRN (05:10)
[2023-09-27 07:04] LABS: Basophils % (A) 1 %; Eosinophils # (A) 0.1 k/uL (0-0.7); Eosinophils % (A) 2 %; HCT 31.3 % (39.0-53.0); HGB 10.3 gm/dL (13.0-17.5); Hypochromasia Slight; Lymphocytes # (A) 0.8 k/uL (1.0-4.8); Lymphocytes % (A) 11 %; MCH 28.4 pg (25.0-35.0); MCHC 32.9 g/dL (31.0-37.0); MCV 86.4 fL (80.0-100.0); Mean Platelet Volume 7.5; Monocytes # (A) 0.5 k/uL (0-1.0); Monocytes % (A) 8 %; Neutrophils # (A) 5.4 k/uL (1.3-7.7); Neutrophils % (A) 76 %; Platelet Count 265 k/uL (150-450); RBC 3.62 m/uL (4.30-5.90); RDW 13.5 % (11.5-15.5)
[2023-09-27 07:25] LABS: African American GFR (CKD) 64 (>60 ml/min/1.73 sqM); Anion Gap 11 mmol/L; Blood Urea Nitrogen 24 mg/dL (9-20); Calcium 8.4 mg/dL (8.4-10.2); Carbon Dioxide 20 mmol/L (22-30); Chloride 107 mmol/L (98-107); Glucose 103 mg/dL (74-99); Non-African American GFR(CKD) 55 (>60 ml/min/1.73 sqM); Potassium 4.1 mmol/L (3.5-5.1); Sodium 138 mmol/L (137-145)
[2023-09-27] MEDS: HYDROmorphone 0.5 MG/0.5 ML SYRINGE IVP PRN ×2 (07:46→13:01)
[2023-09-27] MEDS ORDERED: fentaNYL (PF) 50 MCG/ML 2 ML AMP ONE (07:58)
[2023-09-27] MEDS ORDERED: PROPOFOL 10 MG/ML 20 ML VIAL IV ONE (07:58)
[2023-09-27] MEDS ORDERED: LIDOCAINE 1% INJ 10MG/ML (20 ML MDV) ONE (07:58)
[2023-09-27] MEDS ORDERED: KETOROLAC 15 MG/ML 1 ML VIAL ONE (07:58)
[2023-09-27] MEDS ORDERED: ePHEDrine 50 MG/ML 1 ML VIAL ONE (07:58)
[2023-09-27] MEDS ORDERED: SUCCINYLCHOLINE CHLORIDE 200 MG/10 ML VIAL IV ONE (07:58)
[2023-09-27] MEDS ORDERED: DEXAMETHASONE SOD PHOSPHATE 4 MG/ML 1 ML VIAL ONE (07:58)
[2023-09-27] MEDS ORDERED: ONDANSETRON 4 MG/2 ML VIAL ONE (07:58)
[2023-09-27] MEDS ORDERED: MIDAZOLAM 2 MG/2 ML VIAL ONE (07:58)
[2023-09-27] MEDS ORDERED: SODIUM CHLORIDE 0.9% 1,000 ML IV ONE (08:02)
[2023-09-27] MEDS ORDERED: IOPAMIDOL-370 50ML BTL MISCELLANE ONE (08:34)
[2023-09-27] MEDS ORDERED: LOSARTAN 50 MG TAB PO SCH (09:00)
--- NOTE | 2023-09-27 09:19 | P.PN ---
Subjective Progress Note Date: 09/27/23 no acute overnight events, continues to have right flank pain this morning Objective - Vital Signs Vital signs: Vital Signs Temp 97.3 F L 09/27/23 08:57 Pulse 76 09/27/23 09:12 Resp 16 09/27/23 09:12 BP 117/65 09/27/23 09:12 Pulse Ox 96 09/27/23 09:12 FiO2 Intake & Output 09/26/23 09/27/23 09/27/23 18:59 06:59 18:59 Intake Total 945 300 Output Total 0 Balance 945 300 Weight 88.451 kg Intake: IV 300 Intake, IV Titration 675 Amount Sodium Chloride 0.9% 1, 675 000 ml @ 75 mls/hr IV . [id number] [facility] Rx#:[id number] Oral 270 Output: Estimated Blood Loss 0 Other: Voiding Method Toilet # Voids 4 - Constitutional General appearance: Present: no acute distress - Gastrointestinal General gastrointestinal: Present: soft, tenderness (Right flank). Absent: distended - Psychiatric Psychiatric: Present: A&O x's 3 - Labs CBC & Chem 7: 09/27/23 06:21 09/27/23 06:21 Labs: Abnormal Lab Results - Last 24 Hours (Table) 09/26/23 09/27/23 09/27/23 Range/Units 07:03 06:21 06:21 RBC 3.62 L (4.30-5.90) m/uL Hgb 10.3 L (13.0-17.5) gm/dL Hct 31.3 L (39.0-53.0) % Lymphocytes # 0.8 L (1.0-4.8) k/uL Carbon Dioxide 20 L (22-30) mmol/L BUN 24 H (9-20) mg/dL Creatinine 1.33 H (0.66-1.25) mg/dL Glucose 103 H (74-99) mg/dL Urine Blood Moderate H (Negative) Ur Leukocyte Esterase Trace H (Negative) Urine RBC 86 H (0-5) /hpf Urine WBC 6 H (0-5) /hpf Urine Mucus Moderate H (None) /hpf Assessment and Plan Assessment: This is a 67-year-old male with history of a 3 mm right-sided distal stone, having intractable pain secondary to stone. Discussed with him given the amount of pain and that he's had 2 emergency room presentation secondary to pain the option of a right-sided ureteroscopy with holmium laser and stent. Risks benefits and rational surgery was discussed in detail -Or today for right-sided ureteroscopy with holmium laser lithotripsy, stone basketing and stent insertion. He is okay for discharge from urology standpoint following his surgery
--- NOTE | 2023-09-27 09:24 | P.OP ---
Date of Procedure: 09/27/23 Preoperative Diagnosis: Right ureteral stone Postoperative Diagnosis: same Procedure(s) Performed: Cystoscopy, right ureteroscopy, holmium laser lithotripsy, stone basketing, balloon dilation, and stent insertion Implants: 6-Macedonian by 28 cm stent in the right ureter Anesthesia: VEENA Surgeon: Fidencio Starr Estimated Blood Loss (ml): 5 Pathology: other (right ureteral stone) Condition: stable Disposition: PACU Indications for Procedure: This is a 67-year-old male with history of a 3 mm right-sided distal stone, having intractable pain secondary to stone. Discussed with him given the amount of pain and that he's had 2 emergency room presentation secondary to pain the option of a right-sided ureteroscopy with holmium laser and stent. Risks benefits and rational surgery was discussed in detail Operative Findings: Right sided distal ureteral stone, small caliber stricture encountered at the distal ureter just distal to the stone Description of Procedure: Patient brought to the operating room, general anesthesia was induced. She was prepped and draped in sterile fashion and placed in dorsal lithotomy position. Cystoscopy fitted 21-Macedonian sheath was inserted per urethra, cystoscopy was performed which showed no abnormality within the bladder. Attention was then carried to the right ureteral orifice, a semirigid ureteroscope was inserted per Urethra and advanced up the right ureteral orifice, this point in the distal ureter a small caliber stricture was encountered I was not able to advance the scope past the stricture, at this point a wire was advanced through the scope the scope was removed with the wire in place. On fluoroscopy the location of the wire was confirmed to be in the renal pelvis. At this time a ureteral balloon dilator was passed over the wire, and the area of stricture was dilated to 15-Macedonian under fluoroscopy. At this time the ureteral balloon dilator was removed and the ureteroscope was reinserted, I was able to advance the scope past the stricture and the stone was encountered just distal to the stricture. The stricture was a small caliber stricture. At this point using the holmium laser the stone was fragmented, sizable stone was removed using the stone basket and sent for analysis. This time the ureteroscope was advanced all the way up to the UPJ which showed no additional stones or sizable fragments, pullback ureteroscopy was performed which showed no injury to the ureter or any sizable fragments, as ureteroscope was withdrawn a sensor wire was advanced through. Next a ureteral stent was passed over the wire, the proximal curl was on fluoroscopy and distal curl was visualized using cystoscope. The bladder was emptied at the end of the case. Patient tolerated the procedure was taken to recovery in stable condition
--- NOTE | 2023-09-27 09:28 | FL ---
EXAMINATION TYPE: FL guidance operating room DATE OF EXAM: 09/27/2023 Comparison: CT 09/26/2023 Clinical History: 67-year-old male Cysto for rt kidney stone Findings: Cysto for rt kidney stone 16sec fluoro time 1.6423 mGycm2 DAP Ro Luong 3 images submitted Impression: Procedure fluoroscopy as above.
[2023-09-27] MEDS: SERTRALINE 50 MG TAB PO SCH (10:08)
[2023-09-27] MEDS: ATORVASTATIN 40 MG TAB PO SCH (10:09)
--- NOTE | 2023-09-27 16:33 | P.PN ---
Subjective Progress Note Date: 09/27/23 Hospital Course: 67-year-old male with history of hypertension, dyslipidemia, depression/anxiety presenting with right-sided flank pain and right groin pain. In the ED, temperature was 98.7, pulse 80, respiratory rate 18, blood pressure 138/88, saturating at 95% on room air. WBC 6.3, hemoglobin 12.2, BUN 28, creatinine 1.12, bicarb 21, lipase 127, moderate urine blood, negative nitrites, trace leukocyte esterase. KUB showed nonspecific bowel gas pattern. Abdominal CT showed subtle 3-4 mm distal right ureteral calculus causing mild to minimal right-sided hydronephrosis. Patient admitted for obstructing right renal stone with hydronephrosis. Urology consulted. He is status post lithotripsy and stent placement. Subjective: Patient seen and examined at bedside. No acute events overnight. Pertinent positives and negatives as discussed above, a complete review of syste ms was performed and all other systems are negative. Vitals Signs Reviewed. General: nontoxic, no distress, appears at stated age Derm: warm, dry Head: atraumatic, normocephalic, symmetric Eyes: EOMI, no lid lag, anicteric sclera Mouth: no lip lesion, mucus membranes moist Cardiovascular: S1S2 reg, no murmur Lungs: CTA bilateral, no rhonchi, no rales , no accessory muscle use Abdominal: soft, nontender to palpation, no guarding, no appreciable organomegaly Ext: no gross muscle atrophy, no edema, no contractures Neuro: CN II-XI grossly intact, no focal neuro deficits Psych: Alert, oriented, appropriate affect Data Reviewed Today: Pertinent Labs: Hemoglobin 10.3, bicarb 20, creatinine 1.33 Imaging: No new imaging Assessment and Plan: Obstructing right ureteral calculus Right-sided hydronephrosis Status post cystoscopy, right ureteroscopy, lithotripsy with stone basketing and stent insertion Acute kidney injury, likely post renal -Continue IV fluids, normal saline at 75 mL an hour -Pain control with oral Tylenol as needed, IV Dilaudid as needed, monitor for sedation -Zofran 4 mg IV every 8 hours as needed for nausea -Urology note reviewed, updated to discharge from their standpoint -However given acute kidney injury, we'll check repeat BMP tomorrow, if renal function normal, patient can be discharged Hypertension -Hold hydrochlorothiazide as he can increase stone formation, losartan decreased to 50 mg Hyperlipidemia - continue rosuvastatin 20 Depression/anxiety - continue sertraline 50 DVT ppx: Subcu heparin Code status: Full code Anticipated discharge place: Pending clinical course Anticipated discharge time: Pending clinical course Objective - Vital Signs Vital signs: Vital Signs Temp 97.3 F L 09/27/23 08:57 Pulse 66 09/27/23 09:40 Resp 16 09/27/23 09:40 BP 124/74 09/27/23 09:40 Pulse Ox 95 09/27/23 09:40 FiO2 Intake & Output 09/26/23 09/27/23 09/27/23 18:59 06:59 18:59 Intake Total 945 350 Output Total 0 Balance 945 350 Weight 88.451 kg Intake: IV 350 Intake, IV Titration 675 Amount Sodium Chloride 0.9% 1, 675 000 ml @ 75 mls/hr IV . [id number] [facility] Rx#:[id number] Oral 270 Output: Estimated Blood Loss 0 Other: Voiding Method Toilet # Voids 4 - Labs CBC & Chem 7: 09/27/23 06:21 09/27/23 06:21 Labs: Abnormal Lab Results - Last 24 Hours (Table) 09/27/23 09/27/23 Range/Units 06:21 06:21 RBC 3.62 L (4.30-5.90) m/uL Hgb 10.3 L (13.0-17.5) gm/dL Hct 31.3 L (39.0-53.0) % Lymphocytes # 0.8 L (1.0-4.8) k/uL Carbon Dioxide 20 L (22-30) mmol/L BUN 24 H (9-20) mg/dL Creatinine 1.33 H (0.66-1.25) mg/dL Glucose 103 H (74-99) mg/dL
[2023-09-27] MEDS: CEPHALEXIN 500 MG CAP PO SCH ×2 (16:47→21:03)
[2023-09-27] MEDS: HEPARIN SODIUM,PORCINE 5,000 UNIT/ML 1 ML VIAL SQ SCH ×2 (16:47→23:32)
[2023-09-27] MEDS ORDERED: KETOROLAC 15 MG/ML 1 ML VIAL IM SCH (18:00)
[2023-09-27] MEDS: KETOROLAC 15 MG/ML 1 ML VIAL IVP SCH ×2 (18:14→23:32)
[2023-09-28] MEDS: KETOROLAC 15 MG/ML 1 ML VIAL IVP SCH (05:29)
[2023-09-28 07:42] LABS: Basophils % (A) 0 %; Eosinophils % (A) 0 %; HCT 29.7 % (39.0-53.0); HGB 9.7 gm/dL (13.0-17.5); Hypochromasia Slight; Lymphocytes # (A) 0.7 k/uL (1.0-4.8); Lymphocytes % (A) 10 %; MCHC 32.5 g/dL (31.0-37.0); Mean Platelet Volume 7.4; Monocytes # (A) 0.4 k/uL (0-1.0); Monocytes % (A) 6 %; Neutrophils # (A) 5.6 k/uL (1.3-7.7); Neutrophils % (A) 83 %; Platelet Count 266 k/uL (150-450); RBC 3.46 m/uL (4.30-5.90); RDW 13.5 % (11.5-15.5); WBC 6.8 k/uL (3.8-10.6)
[2023-09-28 07:57] LABS: African American GFR (CKD) >90 (>60 ml/min/1.73 sqM); Anion Gap 8 mmol/L; Blood Urea Nitrogen 24 mg/dL (9-20); Calcium 8.5 mg/dL (8.4-10.2); Carbon Dioxide 22 mmol/L (22-30); Chloride 109 mmol/L (98-107); Glucose 123 mg/dL (74-99); Non-African American GFR(CKD) 81 (>60 ml/min/1.73 sqM); Potassium 4.3 mmol/L (3.5-5.1); Sodium 139 mmol/L (137-145)
[2023-09-28 08:17] VITALS: BP 119/71; PULSE 60; RESP 17; TEMP 97.8
[2023-09-28] MEDS ORDERED: LOSARTAN 50 MG TAB PO SCH (09:00)
[2023-09-28] MEDS: HEPARIN SODIUM,PORCINE 5,000 UNIT/ML 1 ML VIAL SQ SCH (09:57)
[2023-09-28] MEDS: SERTRALINE 50 MG TAB PO SCH (09:57)
[2023-09-28] MEDS: CEPHALEXIN 500 MG CAP PO SCH (09:57)
[2023-09-28] MEDS: ATORVASTATIN 40 MG TAB PO SCH (09:57)
--- NOTE | 2023-09-28 11:21 | P.DS ---
Providers Date of admission: 09/26/23 11:21 Expected date of discharge: 09/28/23 Attending physician: Kraig La MD Consults: 09/26/23 11:21 Consult Physician Routine Consulting Provider: Fidencio Starr Consult Reason/Comments: kidney stone Do you want consulting provider notified?: Already Contacted Primary care physician: Nirav Lee MD Hospital Course: charge Diagnosis: Obstructing right ureteral calculus Right-sided hydronephrosis Status post cystoscopy, right ureteroscopy, lithotripsy with stone basketing and stent insertion Acute kidney injury Right inguinal hernia Hypertension Hospital Course: 67-year-old male with history of hypertension, dyslipidemia, depression/anxiety presenting with right-sided flank pain and right groin pain. In the ED, temperature was 98.7, pulse 80, respiratory rate 18, blood pressure 138/88, saturating at 95% on room air. WBC 6.3, hemoglobin 12.2, BUN 28, creatinine 1.12, bicarb 21, lipase 127, moderate urine blood, negative nitrites, trace leukocyte esterase. KUB showed nonspecific bowel gas pattern. Abdominal CT showed subtle 3-4 mm distal right ureteral calculus causing mild to minimal right-sided hydronephrosis. Patient admitted for obstructing right renal stone with hydronephrosis. Urology consulted. He is status post lithotripsy and stent placement. Renal function resolved at the time of discharge. Patient has a history of right inguinal hernia, easily reducible, needs outpatient follow- up. Thiazide diuretics discontinued due to increased risk for stone formation. Patient seen and examined at bedside. Vital signs reviewed and stable. General: nontoxic, no distress, appears at stated age Derm: warm, dry Head: atraumatic, normocephalic, symmetric Eyes: EOMI, no lid lag, anicteric sclera Mouth: no lip lesion, mucus membranes moist Cardiovascular: S1S2 reg, no murmur Lungs: CTA bilateral, no rhonchi, no rales , no accessory muscle use Abdominal: soft, nontender to palpation, no guarding, no appreciable organomegaly, right inguinal hernia reducible Ext: no gross muscle atrophy, no edema, no contractures Neuro: CN II-XI grossly intact, no focal neuro deficits Psych: Alert, oriented, appropriate affect A total of 33 minutes of time were spent preparing this complex discharge summary. Patient was discharged on 09/28/23 at 1055. Patient Condition at Discharge: Stable Plan - Discharge Summary Discharge Rx Participant: No New Discharge Prescriptions: New Losartan [Cozaar] 50 mg PO DAILY #60 tab Cephalexin [Keflex] 500 mg PO Q8HR #15 cap Continue Rosuvastatin Calcium 20 mg PO DAILY Sertraline [Zoloft] 50 mg PO DAILY Acetaminophen Tab [Tylenol] 1,000 mg PO Q4-6H PRN PRN Reason: Pain Discontinued Losartan/Hydrochlorothiazide [Losartan-Hctz 100-12.5 mg Tab] 1 tab PO DAILY Discharge Medication List Rosuvastatin Calcium 20 mg PO DAILY 06/24/20 [History] Acetaminophen Tab [Tylenol] 1,000 mg PO Q4-6H PRN 09/26/23 [History] Sertraline [Zoloft] 50 mg PO DAILY 09/26/23 [History] Cephalexin [Keflex] 500 mg PO Q8HR #15 cap 09/27/23 [Rx] Losartan [Cozaar] 50 mg PO DAILY #60 tab 09/28/23 [Rx] Follow up Appointment(s)/Referral(s): Nirav Lee MD [Primary Care Provider] - 1-2 days Fidencio Starr MD [STAFF PHYSICIAN] - 1 Week Patient Instructions/Handouts: Kidney Stones (DC) Activity/Diet/Wound Care/Special Instructions: Increase fluid intake It is normal to have blood in the urine Discharge Disposition: HOME SELF-CARE
--- NOTE | 2023-10-01 20:39 | CDI ---
Documentation Clarification Form Date: 10/01/2023 From: Fern Monique Admit Date: 09/26/2023 11:21:00 AM Patient Name: Louis Mitchell Visit Number: [id number] Discharge Date: 09/28/2023 11:23:00 AM ATTENTION: The Clinical Documentation Specialists (CDI) and [facility] Coding Staff appreciate your assistance in clarifying documentation. Please respond to the clarification below the line at the bottom and electronically sign. The CDI & [facility] Coding staff will review the response and follow-up if needed. Please note: Queries are made part of the Legal Health Record. If you have any questions, please contact the author of this message via ITS. Dr. Kraig La Your patient has an abnormal lab value: Hgb 9.7 on 09/28. Please clarify if there is an additional diagnosis and/or clinical significance related to this value. History/Risk Factors: 67yo presented w/ R obstructing ureteral calculus and R- sided hydronephrosis. The pt underwent a cystoscopy, R ureteroscopy, holmium laser lithrotripsy, stone basketing, balloon dilation and stent insertion into the R ureter on 09/27 Clinical indicators: Hgb: 09/26 12.2, 09/27 10.3, 09/28 9.7 Treatment: IV fluid monitoring Is there an additional diagnosis and/or clinical significance related to the above lab result/information? [ x ] Acute blood loss anemia [ ] Other anemia (please specify type) [ ] Dilutional, no anemia noted [ ] No additional diagnosis/Not clinically significant [ ] Other, please specify [ ] Unable to determine (Template Last Revised: October 2020) MTDD
== END 2023-09-28 11:23 | disposition home or self-care (01) | DRG 660 ==
LOC: EC 06:10 → 5NMEDONC 11:21
PROVIDERS: ADMIT Student in an Organized Health Care Education/Training Program; ATTEND Student in an Organized Health Care Education/Training Program
PROC: 0T768DZ Dilation of Right Ureter with Intraluminal Device, Via Natural or Artificial Opening Endoscopic (ICD-10-PCS; principal; 2023-09-27 08:00)
PROC: 0TC68ZZ Extirpation of Matter from Right Ureter, Via Natural or Artificial Opening Endoscopic (ICD-10-PCS; 2023-09-27 08:00)
DX: N13.2 Hydronephrosis with renal and ureteral calculous obstruction (principal); D62 Acute posthemorrhagic anemia; R31.0 Gross hematuria; N17.9 Acute kidney failure, unspecified; I10 Essential (primary) hypertension; E78.5 Hyperlipidemia, unspecified; F41.9 Anxiety disorder, unspecified; F32.A Depression, unspecified; Z79.82 Long term (current) use of aspirin; Z79.899 Other long term (current) drug therapy; Z87.442 Personal history of urinary calculi; Z87.19 Personal history of other diseases of the digestive system
CPT/HCPCS: 36415; 74018; 74177; 80048; 80053; 81001; 82365; 83605; 83690; 85025; 96361; 96374; 96375; 96376; 99285

== ENCOUNTER → 2024-06-21 | Outpatient (CLI) | payer OTHER ==
[2024-06-21 19:18] LABS: % Iron Saturation 26.56 (15.00-50.00); BUN/Creat Ratio 16.18 Ratio (12.00-20.00); Blood Urea Nitrogen 17.8 mg/dL (9.0-27.0); Chloride 106 mmol/L (96-109); Glucose 89 mg/dL (70-110); Iron 102 UG/DL (65-175); Potassium 4.6 mmol/L (3.5-5.5); Sodium 141 mmol/L (135-145); Total Iron Binding Capacity 384 UG/DL (228-460)
[2024-06-21 19:19] LABS: Calcium 9.3 mg/dL (8.7-10.3); Carbon Dioxide 23.9 mmol/L (21.6-31.8); Ferritin 43.6 ng/mL (22.0-322.0)
== END | disposition home or self-care (01) ==
LOC: LABWHC1 12:14
PROVIDERS: ATTEND Family Medicine
DX: N18.31 Chronic kidney disease, stage 3a (principal); D63.1 Anemia in chronic kidney disease; R53.83 Other fatigue; R73.01 Impaired fasting glucose
CPT/HCPCS: 36415; 80048; 82728; 83036; 83540; 83550; 84403

== ENCOUNTER → 2025-01-28 | Outpatient (CLI) | payer OTHER ==
--- NOTE | 2025-01-28 13:44 | XR ---
EXAMINATION TYPE: XR wrist limited LT DATE OF EXAM: 01/28/2025 CLINICAL INDICATION: Male, 69 years old with history of M25.532 LEFT WRIST PAIN, TECHNIQUE: 2 Views of the wrist. COMPARISON: None FINDINGS: There is no acute displaced fracture evident in the left wrist. [id number] triscaphe joint degenerative change. The overlying soft tissue appears unremarkable. IMPRESSION: As above. [facility], , 01/28/2025 1:42 PM
== END | disposition home or self-care (01) ==
LOC: RADXRMAIN 13:22
PROVIDERS: ATTEND Family Medicine
DX: M19.032 Primary osteoarthritis, left wrist (principal)